=== PATIENT | female | born 1980 | race Two or more races ===

== ENCOUNTER 2021-08-02 16:17 | Outpatient (REF) | payer MEDICAID, SELFPAY ==
[2021-08-02 16:36] LABS: MANUAL DIFF FLAG NO
[2021-08-02 16:59] LABS: Basophils Percent Auto 0.8 % (0-2); Eosinophils Absolute Auto 0.1 X10*3/uL (0.0-0.4); Eosinophils Percent Auto 1.5 % (0-4); Hematocrit 36.5 % (37-47); Hemoglobin 11.6 g/dl (12.0-16.0); Imm Gran Abs Auto 0.01 X10*3/uL (0.00-0.03); Imm Gran Pct Auto 0.2 % (0.0-0.4); Lymphocytes Absolute Auto 2.5 X10*3/uL (1.2-4.9); Mean Corpuscular HGB Conc 31.8 g/dl (31.0-35.0); Mean Corpuscular Hemoglobin 29.5 pg (27.0-33.0); Mean Corpuscular Volume 92.9 fL (80-98); Mean Platelet Volume 10.5 fL (9.4-12.3); Monocytes Absolute Auto 0.4 X10*3/uL (0.1-1.2); Monocytes Percent Auto 8.5 % (2-11); Neutrophils Absolute Auto 2.1 X10*3/uL (2.0-8.3); Platelet Count 256 X10*3/uL (160-400); Red Blood Count 3.93 X10*6/uL (4.20-5.50); White Blood Count 5.2 X10*3/uL (4.8-10.8)
[2021-08-02 17:13] LABS: Alanine Aminotransferase 11 U/L (0-31); Albumin Level 4.3 g/dL (3.5-5.0); Alkaline Phosphatase 47 U/L (39-117); Anion Gap 11 (12-20); Aspartate Amino Transferase 14 U/L (5-31); Bilirubin Total 0.3 mg/dL (0.0-1.0); Blood Urea Nitrogen 17 mg/dL (9-16); Calcium 9.1 mg/dL (8.4-10.2); Carbon Dioxide 25 mmol/L (22-29); Chloride 107 mmol/L (96-108); Estimated Glomerular Filt Rate > 60; Glucose Random 97 mg/dL (60-115); Iron 86 mcg/dL (30-160); Percent Iron Saturation 29 % (15-50); Potassium 3.5 mmol/L (3.3-5.1); Sodium 139 mmol/L (135-145); Total Iron Binding Capacity 300 mcg/dL (228-428); Unsaturated Iron Binding 214 ug/dL
[2021-08-02 17:34] LABS: Vitamin D 25-OH Total 25.8 ng/mL (>30)
== END 2021-08-02 16:18 | disposition home or self-care (01) ==
LOC: HO.LAB 16:17
PROVIDERS: PCP Internal Medicine; Visit Provider Internal Medicine
DX: I10 Essential (primary) hypertension (principal); E78.00 Pure hypercholesterolemia, unspecified; D64.9 Anemia, unspecified; E55.9 Vitamin D deficiency, unspecified
CPT/HCPCS: 36415; 80053; 82306; 83540; 85025

== ENCOUNTER 2021-10-05 16:01 | Outpatient (REF) | payer MEDICAID, SELFPAY ==
--- NOTE | ~2021-10-05 | XR_ITS ---
EXAMINATION: XR KNEE, RIGHT CLINICAL INFORMATION: Pain COMPARISON: None TECHNIQUE: Four views of the right knee. FINDINGS: The patella appears well seated on the sunrise image. No significant effusion is seen. There is no bony erosion or osteopenia. No significant degeneration. XR/XR knee RT 4V IMPRESSION: No bony finding.
[2021-10-05 16:20] LABS: MANUAL DIFF FLAG NO
[2021-10-05 17:02] LABS: Basophils Percent Auto 0.5 % (0-2); Eosinophils Absolute Auto 0.1 X10*3/uL (0.0-0.4); Eosinophils Percent Auto 2.5 % (0-4); Hematocrit 36.6 % (37.0-47.0); Hemoglobin 11.9 g/dl (12.0-16.0); Imm Gran Abs Auto 0.01 X10*3/uL (0.00-0.03); Imm Gran Pct Auto 0.2 % (0.0-0.4); Lymphocytes Absolute Auto 2.5 X10*3/uL (1.2-4.9); Lymphocytes Percent Auto 44.4 % (20-40); Mean Corpuscular HGB Conc 32.5 g/dl (31.0-35.0); Mean Corpuscular Hemoglobin 30.5 pg (27.0-33.0); Mean Corpuscular Volume 93.8 fL (80.0-98.0); Mean Platelet Volume 10.8 fL (9.4-12.3); Monocytes Absolute Auto 0.5 X10*3/uL (0.1-1.2); Monocytes Percent Auto 9.3 % (2-11); Neutrophils Absolute Auto 2.4 x10*3/uL (2.0-8.3); Neutrophils Percent Auto 43.1 % (45-73); Platelet Count 237 X10*3/uL (160-400); Red Cell Distribution Width 12.4 % (11.0-16.0); White Blood Count 5.6 X10*3/uL (4.8-10.8)
[2021-10-05 17:27] LABS: Iron 75 mcg/dL (30-160); Percent Iron Saturation 24 % (15-50); Total Iron Binding Capacity 310 mcg/dL (228-428); Unsaturated Iron Binding 235 ug/dL
[2021-10-05 17:49] LABS: Vitamin D 25-OH Total 46.9 ng/mL (>30)
== END 2021-10-05 16:02 | disposition home or self-care (01) ==
LOC: HO.XRAY 16:01
PROVIDERS: PCP Internal Medicine; Visit Provider Internal Medicine
DX: D64.9 Anemia, unspecified (principal); E55.9 Vitamin D deficiency, unspecified; M25.561 Pain in right knee
CPT/HCPCS: 36415; 73564; 82306; 83540; 85025

== ENCOUNTER 2021-10-15 11:05 | Outpatient (REF) | payer MEDICAID, SELFPAY ==
[2021-10-15 12:09] LABS: COVID-19 Test Positive (Negative); IDNOW Serial# 16C4AD1C
== END 2021-10-15 11:06 | disposition home or self-care (01) ==
LOC: HO.LAB 11:05
PROVIDERS: Visit Provider Internal Medicine
DX: Z20.822 Contact with and (suspected) exposure to COVID-19 (principal)
CPT/HCPCS: 36415; 87635; C9803

== ENCOUNTER 2021-10-27 15:02 | Outpatient (REF) | payer MEDICAID, SELFPAY ==
[2021-10-27 16:34] LABS: Binax Internal Control QC Valid; Binax Now Covid-19 Ag Negative (Negative)
[2021-10-27 16:35] LABS: Binax Lot number: 9864
== END 2021-10-27 15:03 | disposition home or self-care (01) ==
LOC: HO.LAB 15:02
PROVIDERS: Visit Provider Internal Medicine
DX: Z20.822 Contact with and (suspected) exposure to COVID-19 (principal)
CPT/HCPCS: 36415; C9803

== ENCOUNTER 2021-11-14 15:47 | Outpatient (REF) | payer MEDICAID, SELFPAY ==
--- NOTE | 2021-11-14 16:16 | MHC.AU.ANR ---
Adult Audiological Evaluation Date of Visit: 11/14/21 Reason for Appointment: Audiological evaluation due to concern for decreased hearing. Ms. Iglesias notes that she's had fullness in her right ear and feels it is blocked. She notes frequent popping sounds in her ears and itching in her right ear. She notes that she had her hearing tested last year in [place], [place] and was told she has mild hearing loss in one ear. She feels that overall she hears well and doesn't experience communication difficulty. Does patient feel they have a hearing loss?: Unsure Has hearing been tested previously?: Yes Previous Hearing Test Results: [place], [place] last year, records not available for review Hearing Handicap Inventory: HHIE SCORE: 0 Based on HHIE score, patient has: No perceived hearing handicap Ear History: Family History of Hearing Loss?: Yes Blocked/Full Sensation in Ear(s): Both Ears Medical History: Medical History: High Blood Pressure Medical History (Other): Appendectomy 2009, laparoscopic hysterectomy 2019 Allergies: No known allergies Medication List: Lisinopril 5 mg, Simvastatin 20 mg, Folic Acid 1 mg, Ferrous sulfate 325 mg, [place]-3 acid Otoscopy: Right Ear: Unremarkable Left Ear: Unremarkable Tympanometry: Tympanometry performed due to: Conductive component found in audiometric results Right Ear: Normal Middle Ear System (Type A) Left Ear: Normal Middle Ear System (Type A) Hearing Evaluation: Transducer(s) Used: Insert Earphones, Bone Conduction Method: Conventional Audiometry Stimuli Used: Pure Tones Right Ear: Description of Hearing: Normal hearing from 250-2000 Hz, sloping to a mild to moderate conductive hearing loss from 8559-6225 Hz. Negative pure tone Kelley test. Left Ear: Description of Hearing: Normal hearing from 250-8000 Hz. Speech Recognition Threshold (SRT): Method Used: Monitored Live Voice Stimuli Used: Spondee Words Right Ear: 30 dBHL Left Ear: 5 dBHL Word Discrimination: Method: Recorded Lists Word Lists Used: NU-6 Right Ear: 88% at 50 dBHL Left Ear: 100% at 55 dBHL Recommendations: Audiological re-evaluation in one year. Referral to Ear, Nose, and Throat is recommended given asymmetric, conductive hearing loss in the right ear. 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
== END 2021-11-14 15:48 | disposition home or self-care (01) ==
LOC: HO.SH 15:47
PROVIDERS: Visit Provider Internal Medicine
DX: H90.11 Conductive hearing loss, unilateral, right ear, with unrestricted hearing on the contralateral side (principal)
CPT/HCPCS: 92557; 92567

== ENCOUNTER 2022-02-06 16:21 | Outpatient (REF) | payer MEDICAID, SELFPAY ==
[2022-02-06 16:37] LABS: MANUAL DIFF FLAG NO
[2022-02-06 16:59] LABS: Basophils Absolute Auto 0.1 X10*3/uL (0.0-0.2); Basophils Percent Auto 1.1 % (0-2); Eosinophils Absolute Auto 0.1 X10*3/uL (0.0-0.4); Eosinophils Percent Auto 1.5 % (0-4); Hematocrit 35.4 % (37.0-47.0); Hemoglobin 11.5 g/dl (12.0-16.0); Lymphocytes Absolute Auto 2.4 X10*3/uL (1.2-4.9); Lymphocytes Percent Auto 44.2 % (20-40); Mean Corpuscular HGB Conc 32.5 g/dl (31.0-35.0); Mean Corpuscular Hemoglobin 30.1 pg (27.0-33.0); Mean Corpuscular Volume 92.7 fL (80.0-98.0); Mean Platelet Volume 10.8 fL (9.4-12.3); Monocytes Absolute Auto 0.5 X10*3/uL (0.1-1.2); Monocytes Percent Auto 9.8 % (2-11); Neutrophils Absolute Auto 2.4 x10*3/uL (2.0-8.3); Neutrophils Percent Auto 43.4 % (45-73); Platelet Count 216 X10*3/uL (160-400); Red Blood Count 3.82 X10*6/uL (4.20-5.50); Red Cell Distribution Width 12.5 % (11.0-16.0); White Blood Count 5.5 X10*3/uL (4.8-10.8)
[2022-02-06 17:34] LABS: Alanine Aminotransferase 12 U/L (0-31); Albumin Level 4.1 g/dL (3.5-5.0); Alkaline Phosphatase 42 U/L (39-117); Anion Gap 11 (12-20); Aspartate Amino Transferase 15 U/L (5-31); Bilirubin Total 0.3 mg/dL (0.0-1.0); Blood Urea Nitrogen 17 mg/dL (9-16); C Reactive Protein 0.25 mg/dL (< or = 0.50); Calcium 9.3 mg/dL (8.4-10.2); Carbon Dioxide 24 mmol/L (22-29); Chloride 106 mmol/L (96-108); Estimated Glomerular Filt Rate > 60; Glucose Random 89 mg/dL (60-115); Potassium 3.7 mmol/L (3.3-5.1); Sodium 137 mmol/L (135-145); Total Protein 6.9 g/dL (6.5-8.0)
[2022-02-06 17:50] LABS: Appearance Urine CLEAR; Color Urine YELLOW; Glucose Urine UA NEG (NEG); Leukocyte Esterase Urine NEG (NEG); Nitrite Urine NEG (NEG); PH 6.5 (5.0-8.0); Specific Gravity - Urine 1.015 (1.005-1.025); Urine Blood NEG (NEG); Urine Ketones NEG (NEG); Urine Protein NEG (NEG-TRACE)
== END 2022-02-06 16:22 | disposition home or self-care (01) ==
LOC: HO.LAB 16:21
PROVIDERS: PCP Internal Medicine; Visit Provider Internal Medicine
DX: R10.2 Pelvic and perineal pain (principal); R30.0 Dysuria
CPT/HCPCS: 36415; 80053; 81003; 85025; 86140; 87086

== ENCOUNTER 2022-06-04 14:36 | Outpatient (REF) | payer MEDICAID, SELFPAY ==
[2022-06-04 14:51] LABS: MANUAL DIFF FLAG NO
[2022-06-04 15:12] LABS: Basophils Percent Auto 0.7 % (0-2); Eosinophils Absolute Auto 0.1 X10*3/uL (0.0-0.4); Eosinophils Percent Auto 1.7 % (0-4); Hematocrit 37.7 % (37.0-47.0); Hemoglobin 12.2 g/dl (12.0-16.0); Imm Gran Abs Auto 0.01 X10*3/uL (0.00-0.03); Imm Gran Pct Auto 0.2 % (0.0-0.4); Lymphocytes Percent Auto 35.3 % (20-40); Mean Corpuscular HGB Conc 32.4 g/dl (31.0-35.0); Mean Corpuscular Hemoglobin 30.2 pg (27.0-33.0); Mean Corpuscular Volume 93.3 fL (80.0-98.0); Mean Platelet Volume 10.6 fL (9.4-12.3); Monocytes Absolute Auto 0.6 X10*3/uL (0.1-1.2); Monocytes Percent Auto 9.9 % (2-11); Neutrophils Percent Auto 52.2 % (45-73); Platelet Count 230 X10*3/uL (160-400); Red Blood Count 4.04 X10*6/uL (4.20-5.50); Red Cell Distribution Width 12.4 % (11.0-16.0); White Blood Count 5.8 X10*3/uL (4.8-10.8)
[2022-06-04 15:40] LABS: Alanine Aminotransferase 15 U/L (0-31); Albumin Level 4.3 g/dL (3.5-5.0); Alkaline Phosphatase 49 U/L (39-117); Anion Gap 14 (12-20); Aspartate Amino Transferase 14 U/L (5-31); Bilirubin Total 0.3 mg/dL (0.0-1.0); Blood Urea Nitrogen 19 mg/dL (9-16); Calcium 9.1 mg/dL (8.4-10.2); Carbon Dioxide 26 mmol/L (22-29); Chloride 106 mmol/L (96-108); Estimated Glomerular Filt Rate > 60; Glucose Random 77 mg/dL (60-115); Iron 85 mcg/dL (30-160); Percent Iron Saturation 30 % (15-50); Sodium 142 mmol/L (135-145); Total Iron Binding Capacity 288 mcg/dL (228-428); Unsaturated Iron Binding 203 ug/dL
== END 2022-06-04 14:37 | disposition home or self-care (01) ==
LOC: HO.LAB 14:36
PROVIDERS: PCP Internal Medicine; Visit Provider Internal Medicine
DX: R10.9 Unspecified abdominal pain (principal); R19.7 Diarrhea, unspecified; D64.9 Anemia, unspecified
CPT/HCPCS: 36415; 80053; 83540; 85025

== ENCOUNTER 2022-10-26 08:16 | Outpatient (REF) | payer MEDICAID, SELFPAY ==
[2022-10-26 08:26] LABS: MANUAL DIFF FLAG NO
[2022-10-26 09:00] LABS: Basophils Percent Auto 0.9 % (0-2); Eosinophils Absolute Auto 0.1 X10*3/uL (0.0-0.4); Eosinophils Percent Auto 2.3 % (0-4); Hematocrit 36.8 % (37.0-47.0); Hemoglobin 11.9 g/dl (12.0-16.0); Imm Gran Abs Auto 0.01 X10*3/uL (0.00-0.03); Imm Gran Pct Auto 0.2 % (0.0-0.4); Lymphocytes Percent Auto 45.6 % (20-40); Mean Corpuscular HGB Conc 32.3 g/dl (31.0-35.0); Mean Corpuscular Hemoglobin 29.8 pg (27.0-33.0); Mean Corpuscular Volume 92.2 fL (80.0-98.0); Mean Platelet Volume 10.9 fL (9.4-12.3); Monocytes Absolute Auto 0.4 X10*3/uL (0.1-1.2); Monocytes Percent Auto 9.2 % (2-11); Neutrophils Absolute Auto 1.8 x10*3/uL (2.0-8.3); Neutrophils Percent Auto 41.8 % (45-73); Platelet Count 216 X10*3/uL (160-400); Red Blood Count 3.99 X10*6/uL (4.20-5.50); Red Cell Distribution Width 12.7 % (11.0-16.0); White Blood Count 4.4 X10*3/uL (4.8-10.8)
[2022-10-26 09:29] LABS: Cholesterol 167 mg/dL; HDL Cholesterol 54 mg/dL; LDL Cholesterol Calculated 100 mg/dl; Triglycerides 66 mg/dL
[2022-10-26 09:44] LABS: Free T4 (Free Thyroxine) 0.89 ng/dL (0.71-1.85)
== END 2022-10-26 08:17 | disposition home or self-care (01) ==
LOC: HO.LAB 08:16
PROVIDERS: PCP Internal Medicine; Visit Provider Internal Medicine
DX: E78.00 Pure hypercholesterolemia, unspecified (principal); R63.4 Abnormal weight loss
CPT/HCPCS: 36415; 80061; 84439; 85025

== ENCOUNTER 2023-01-09 14:01 | Outpatient (REF) | payer MEDICAID, SELFPAY ==
[2023-01-09 15:51] LABS: Anion Gap 12 (12-20); Blood Urea Nitrogen 11 mg/dL (9-16); C Reactive Protein 0.16 mg/dL (< or = 0.50); Carbon Dioxide 26 mmol/L (22-29); Chloride 107 mmol/L (96-108); Estimated Glomerular Filt Rate > 60; Glucose Random 85 mg/dL (60-115); Potassium 3.7 mmol/L (3.3-5.1); Sodium 141 mmol/L (135-145)
[2023-01-09 16:16] LABS: Free T4 (Free Thyroxine) 0.92 ng/dL (0.71-1.85); Thyroid Stimulating Hormone 1.08 uIU/mL (0.32-4.0); Vitamin B12 354 pg/mL (200-900)
== END 2023-01-09 14:02 | disposition home or self-care (01) ==
LOC: HO.LAB 14:01
PROVIDERS: PCP Internal Medicine; Visit Provider Internal Medicine
DX: R53.83 Other fatigue (principal); E78.00 Pure hypercholesterolemia, unspecified
CPT/HCPCS: 36415; 80048; 82607; 84439; 84443; 86140

== ENCOUNTER 2023-01-13 13:44 | Emergency (ER) | payer MEDICAID, SELFPAY ==
--- NOTE | ~2023-01-13 | XR_ITS ---
EXAMINATION: XR CHEST CLINICAL INFORMATION: Chest pain COMPARISON: None available. TECHNIQUE: 2 views of the chest were obtained. FINDINGS: The lungs are clear. There is no pneumothorax or pleural reaction. No airspace consolidation or effusion. The heart is normal in size. The hilar and mediastinal contours are normal. There is mild curvature thoracic spine. XR/XR chest 2V IMPRESSION: Unremarkable examination.
[2023-01-13 13:48] VITALS: BP 141/94; PULSE 90; RESP 18; TEMP 36.1; O2SAT 99; BMI 21.2
--- NOTE | 2023-01-13 13:50 | ECG_ITS ---
Test Reason : cp Blood Pressure : / mmHG Vent. Rate : 083 BPM Atrial Rate : 083 BPM P-R Int : 162 ms QRS Dur : 072 ms QT Int : 360 ms P-R-T Axes : 042 012 003 degrees QTc Int : 423 ms Normal sinus rhythm with sinus arrhythmia Nonspecific ST abnormality Abnormal ECG No previous ECGs available Referred By: Generic ED Physician Electronically Signed By:LEANDRA VALLEJO MD
[2023-01-13 14:05] LABS: Basophils Absolute Auto 0.1 X10*3/uL (0.0-0.2); Basophils Percent Auto 0.9 % (0-2); Eosinophils Absolute Auto 0.1 X10*3/uL (0.0-0.4); Eosinophils Percent Auto 1.1 % (0-4); Hematocrit 38.1 % (37.0-47.0); Hemoglobin 12.4 g/dl (12.0-16.0); Imm Gran Abs Auto 0.01 X10*3/uL (0.00-0.03); Imm Gran Pct Auto 0.2 % (0.0-0.4); Lymphocytes Absolute Auto 2.2 X10*3/uL (1.2-4.9); Lymphocytes Percent Auto 38.7 % (20-40); MANUAL DIFF FLAG NO; Mean Corpuscular HGB Conc 32.5 g/dl (31.0-35.0); Mean Corpuscular Hemoglobin 30.2 pg (27.0-33.0); Mean Corpuscular Volume 92.7 fL (80.0-98.0); Mean Platelet Volume 10.3 fL (9.4-12.3); Monocytes Absolute Auto 0.4 X10*3/uL (0.1-1.2); Monocytes Percent Auto 6.4 % (2-11); Neutrophils Percent Auto 52.7 % (45-73); Platelet Count 240 X10*3/uL (160-400); Red Blood Count 4.11 X10*6/uL (4.20-5.50); Red Cell Distribution Width 12.4 % (11.0-16.0); White Blood Count 5.6 X10*3/uL (4.8-10.8)
[2023-01-13 14:24] LABS: Anion Gap 12 (12-20); Blood Urea Nitrogen 16 mg/dL (9-16); Calcium 9.4 mg/dL (8.4-10.2); Carbon Dioxide 26 mmol/L (22-29); Chloride 106 mmol/L (96-108); Creatinine Clr Calc Pharmacy 98.6; Estimated Glomerular Filt Rate > 60; Glucose Random 117 mg/dL (60-115); Potassium 3.8 mmol/L (3.3-5.1); Sodium 140 mmol/L (135-145)
--- NOTE | 2023-01-13 14:24 | ED_ITS ---
HPI - Chest Pain General Chief Complaint: Chest Pain <TIANNA Carlton - Last Filed: 01/13/23 14:27> Stated Complaint: chest pain, trouble breathing <TIANNA Carlton - Last Filed: 01/13/23 14:27> Time Seen by Provider: 01/13/23 17:14 <TIANNA Carlton - Last Filed: 01/13/23 14:27> Source: patient <Rohith Cool MD - Last Filed: 01/13/23 17:41> Mode of arrival: ambulatory <Rohith Cool MD - Last Filed: 01/13/23 17:41> Limitations: no limitations <Rohith Cool MD - Last Filed: 01/13/23 17:41> History of Present Illness HPI narrative: Patient is stress/anxiety with history of borderline hypertension complaining of right-sided and made chest pain for last 1 week comes and goes lasts for few minutes sharp and correct no cough no fever no chills patient under increased stress lately <Rohith Cool MD - Last Filed: 01/13/23 17:41> Related Data Allergies/Adverse Reactions: Allergies Allergy/AdvReac Type Severity Reaction Status Date / Time No Known Allergies Allergy Verified 01/13/23 13:48 <TIANNA Carlton - Last Filed: 01/13/23 14:27> Review of Systems Review of Systems: Yes all other systems are reviewed and are negative <Rohith Cool MD - Last Filed: 01/13/23 17:41> FORMERLY [facility], [facility]–1983 Social History Social History: Social History Advance Directives: No Advance Directives Information Provided: Yes <TIANNA Carlton - Last Filed: 01/13/23 14:27> Physical Exam Vital Signs: Vital Signs: Last Vital Signs Temp 97 F 01/13/23 13:48 Pulse 79 01/13/23 15:01 Resp 14 01/13/23 15:01 BP 124/86 01/13/23 15:01 Pulse Ox 100 01/13/23 15:01 O2 Del Method 01/13/23 15:01 BMI result Body Mass Index 21.2 <TIANNA Carlton - Last Filed: 01/13/23 14:27> Vital Signs: Last Vital Signs Temp 97 F 01/13/23 13:48 Pulse 79 01/13/23 15:01 Resp 14 01/13/23 15:01 BP 124/86 01/13/23 15:01 Pulse Ox 100 01/13/23 15:01 O2 Del Method 01/13/23 15:01 BMI result Body Mass Index 21.2 <Rohith Cool MD - Last Filed: 01/13/23 17:41> Appearance: Alert. Oriented X3. No acute distress. Anxious Eyes: PERRLA, No Nystagmus ENT: Pharynx normal. Oral Mucosa moist Neck: Normal inspection. Neck supple. CVS: Normal heart rate and rhythm. Pulses normal. Respiratory: No respiratory distress. Equal air entry bilateral, no wheezing/rales/rhonchi Abdomen: Soft and nontender. Bowel sounds are present, no mass palpable, no CVA tenderness Skin: Skin warm and dry. Normal skin color. Normal skin turgor. Extremities: No lower extremity edema. No calf tenderness Neuro: Oriented X 3. No motor deficit. No sensory deficit.No cerebellar signs , cranial nerves II-XII intact <Rohith Cool MD - Last Filed: 01/13/23 17:41> Course Course Course Narrative: This is an RME: Additional HPI, ROS, PE not included below will be deferred to primary provider. 43-year-old female plan is ends with pleuritic chest pain, shortness of breath times a week and half, not going away. Patient tells me that there was cardiac history in the family that she is unsure of so she is worried. Pain is worse with deep breathing and exercising. Located in the substernal region nonradiating. She denies long travel, smoking, c ontrol. No lower extremity swelling. Physical exam benign Plan cardiac work up, D-dimer, x-ray. <TIANNA Carlton - Last Filed: 01/13/23 14:27> Medical Decision Making Medical Decision Making MDM Narrative: Patient has atypical chest pain with increased stress high sensitive troponin negative discharge patient home advised to follow with PCP workup negative D-dimer negative high sensitive troponin <Rohith Cool MD - Last Filed: 01/13/23 17:41> Differential Diagnosis ACS/PE/CAD <Rohith Cool MD - Last Filed: 01/13/23 17:41> Lab Data [facility] Lab Attestation statement: I reviewed the patient's lab results. <Rohith Cool MD - Last Filed: 01/13/23 17:41> Result Diagrams: 01/13/23 14:00 01/13/23 14:00 <TIANNA Carlton - Last Filed: 01/13/23 14:27> Labs: Lab Results 01/13/23 01/13/23 01/13/23 Range/Units 14:00 14:00 14:00 WBC 5.6 (4.8-10.8) X10*3/uL RBC 4.11 L (4.20-5.50) X10*6/uL Hgb 12.4 (12.0-16.0) g/dl Hct 38.1 (37.0-47.0) % MCV 92.7 (80.0-98.0) fL MCH 30.2 (27.0-33.0) pg MCHC 32.5 (31.0-35.0) g/dl RDW 12.4 (11.0-16.0) % Plt Count 240 (160-400) X10*3/uL MPV 10.3 (9.4-12.3) fL Immature Gran % (Auto) 0.2 (0.0-0.4) % Neut % (Auto) 52.7 (45-73) % Lymph % (Auto) 38.7 (20-40) % [place] % (Auto) 6.4 (2-11) % Eos % (Auto) 1.1 (0-4) % Baso % (Auto) 0.9 (0-2) % Lymph # (Auto) 2.2 (1.2-4.9) X10*3/uL [place] # (Auto) 0.4 (0.1-1.2) X10*3/uL Eos # (Auto) 0.1 (0.0-0.4) X10*3/uL Baso # (Auto) 0.1 (0.0-0.2) X10*3/uL Abs Immat Gran (auto) 0.01 (0.00-0.03) X10*3/uL Absolute Neuts (auto) 3.0 (2.0-8.3) x10*3/uL Absolute Nucleated RBC 0.000 (0.0-0.012) X10*3/uL Nucleated RBC % (auto) 0.0 (0.0-0.2) /100WBC D-Dimer High Sensitivty NG/ML Sodium 140 (135-145) mmol/L Potassium 3.8 (3.3-5.1) mmol/L Chloride 106 (96-108) mmol/L Carbon Dioxide 26 (22-29) mmol/L Anion Gap 12 (12-20) BUN 16 (9-16) mg/dL Creatinine 0.73 (0.5-1.4) mg/dL Estim Creat Clear Calc 98.6 Estimated GFR > 60 Random Glucose 117 H (60-115) mg/dL Calcium 9.4 (8.4-10.2) mg/dL Troponin I High Sens < 3.5 (<3.5-17.0) ng/L 01/13/23 Range/Units 15:31 WBC (4.8-10.8) X10*3/uL RBC (4.20-5.50) X10*6/uL Hgb (12.0-16.0) g/dl Hct (37.0-47.0) % MCV (80.0-98.0) fL MCH (27.0-33.0) pg MCHC (31.0-35.0) g/dl RDW (11.0-16.0) % Plt Count (160-400) X10*3/uL MPV (9.4-12.3) fL Immature Gran % (Auto) (0.0-0.4) % Neut % (Auto) (45-73) % Lymph % (Auto) (20-40) % [place] % (Auto) (2-11) % Eos % (Auto) (0-4) % Baso % (Auto) (0-2) % Lymph # (Auto) (1.2-4.9) X10*3/uL [place] # (Auto) (0.1-1.2) X10*3/uL Eos # (Auto) (0.0-0.4) X10*3/uL Baso # (Auto) (0.0-0.2) X10*3/uL Abs Immat Gran (auto) (0.00-0.03) X10*3/uL Absolute Neuts (auto) (2.0-8.3) x10*3/uL Absolute Nucleated RBC (0.0-0.012) X10*3/uL Nucleated RBC % (auto) (0.0-0.2) /100WBC D-Dimer High Sensitivty < 150 NG/ML Sodium (135-145) mmol/L Potassium (3.3-5.1) mmol/L Chloride (96-108) mmol/L Carbon Dioxide (22-29) mmol/L Anion Gap (12-20) BUN (9-16) mg/dL Creatinine (0.5-1.4) mg/dL Estim Creat Clear Calc Estimated GFR Random Glucose (60-115) mg/dL Calcium (8.4-10.2) mg/dL Troponin I High Sens (<3.5-17.0) ng/L <TIANNA Carlton - Last Filed: 01/13/23 14:27> Lab Results 01/13/23 01/13/23 01/13/23 Range/Units 14:00 14:00 14:00 WBC 5.6 (4.8-10.8) X10*3/uL RBC 4.11 L (4.20-5.50) X10*6/uL Hgb 12.4 (12.0-16.0) g/dl Hct 38.1 (37.0-47.0) % MCV 92.7 (80.0-98.0) fL MCH 30.2 (27.0-33.0) pg MCHC 32.5 (31.0-35.0) g/dl RDW 12.4 (11.0-16.0) % Plt Count 240 (160-400) X10*3/uL MPV 10.3 (9.4-12.3) fL Immature Gran % (Auto) 0.2 (0.0-0.4) % Neut % (Auto) 52.7 (45-73) % Lymph % (Auto) 38.7 (20-40) % [place] % (Auto) 6.4 (2-11) % Eos % (Auto) 1.1 (0-4) % Baso % (Auto) 0.9 (0-2) % Lymph # (Auto) 2.2 (1.2-4.9) X10*3/uL [place] # (Auto) 0.4 (0.1-1.2) X10*3/uL Eos # (Auto) 0.1 (0.0-0.4) X10*3/uL Baso # (Auto) 0.1 (0.0-0.2) X10*3/uL Abs Immat Gran (auto) 0.01 (0.00-0.03) X10*3/uL Absolute Neuts (auto) 3.0 (2.0-8.3) x10*3/uL Absolute Nucleated RBC 0.000 (0.0-0.012) X10*3/uL Nucleated RBC % (auto) 0.0 (0.0-0.2) /100WBC D-Dimer High Sensitivty NG/ML Sodium 140 (135-145) mmol/L Potassium 3.8 (3.3-5.1) mmol/L Chloride 106 (96-108) mmol/L Carbon Dioxide 26 (22-29) mmol/L Anion Gap 12 (12-20) BUN 16 (9-16) mg/dL Creatinine 0.73 (0.5-1.4) mg/dL Estim Creat Clear Calc 98.6 Estimated GFR > 60 Random Glucose 117 H (60-115) mg/dL Calcium 9.4 (8.4-10.2) mg/dL Troponin I High Sens < 3.5 (<3.5-17.0) ng/L 01/13/23 Range/Units 15:31 WBC (4.8-10.8) X10*3/uL RBC (4.20-5.50) X10*6/uL Hgb (12.0-16.0) g/dl Hct (37.0-47.0) % MCV (80.0-98.0) fL MCH (27.0-33.0) pg MCHC (31.0-35.0) g/dl RDW (11.0-16.0) % Plt Count (160-400) X10*3/uL MPV (9.4-12.3) fL Immature Gran % (Auto) (0.0-0.4) % Neut % (Auto) (45-73) % Lymph % (Auto) (20-40) % [place] % (Auto) (2-11) % Eos % (Auto) (0-4) % Baso % (Auto) (0-2) % Lymph # (Auto) (1.2-4.9) X10*3/uL [place] # (Auto) (0.1-1.2) X10*3/uL Eos # (Auto) (0.0-0.4) X10*3/uL Baso # (Auto) (0.0-0.2) X10*3/uL Abs Immat Gran (auto) (0.00-0.03) X10*3/uL Absolute Neuts (auto) (2.0-8.3) x10*3/uL Absolute Nucleated RBC (0.0-0.012) X10*3/uL Nucleated RBC % (auto) (0.0-0.2) /100WBC D-Dimer High Sensitivty < 150 NG/ML Sodium (135-145) mmol/L Potassium (3.3-5.1) mmol/L Chloride (96-108) mmol/L Carbon Dioxide (22-29) mmol/L Anion Gap (12-20) BUN (9-16) mg/dL Creatinine (0.5-1.4) mg/dL Estim Creat Clear Calc Estimated GFR Random Glucose (60-115) mg/dL Calcium (8.4-10.2) mg/dL Troponin I High Sens (<3.5-17.0) ng/L <Rohith Cool MD - Last Filed: 01/13/23 17:41> Independent Interpretation I performed an independent interpretation of an: EKG <Rohith Cool MD - Last Filed: 01/13/23 17:41> Interpretation: Normal sinus rhythm heart rate 83 beats per min nonspecific STT wave changes no acute ischemic changes normal interval normal axis no acute skin <Rohith Cool MD - Last Filed: 01/13/23 17:41> Discharge Plan Discharge Clinical Impression: Chest pain, non-cardiac <TIANNA Carlton - Last Filed: 01/13/23 14:27> Patient Disposition: Home, Self-Care <TIANNA Carlton - Last Filed: 01/13/23 14:27> Instructions: Noncardiac Chest Pain (ED) <TIANNA Carlton - Last Filed: 01/13/23 14:27> Additional Instructions: Follow-up with PCP chest pain is not from the heart likely stress/anxiety <TIANNA Carlton - Last Filed: 01/13/23 14:27>
[2023-01-13 14:36] LABS: Troponin-I High Sensitivity < 3.5 ng/L (<3.5-17.0)
[2023-01-13 15:01] VITALS: BP 124/86; PULSE 79; RESP 14; O2SAT 100
[2023-01-13 16:41] LABS: D Dimer High Sensitivity < 150 NG/ML
--- NOTE | 2023-01-13 16:49 | PC.NURSE ---
pt is resting comfortably on stretcher at this time. Reports burning like chest pain and mild shortness of breath x1 week. Pt reports no sick contacts, no other symptoms. VSS at this time, oxygen good as well. Awaiting MD at this time
== END 2023-01-13 17:47 | disposition home or self-care (01) ==
PROVIDERS: Physician Assistant; Emergency Provider Internal Medicine; PCP Internal Medicine
DX: R07.9 Chest pain, unspecified (principal); R06.02 Shortness of breath
CPT/HCPCS: 36415; 71046; 80048; 84484; 85025; 85379; 93005; 99283; 99284

== ENCOUNTER 2023-06-17 10:54 | Outpatient (AMB) | payer OTHER, SELFPAY ==
--- NOTE | 2023-06-17 10:58 | MHC.OFFVIS ---
Intake Vital Signs 06/17/23 10:59 Height 5 ft 7 in Weight 134 lb 7.712 oz BMI 21.1 BP 121/73 Blood Pressure Location Lt brachial Position Sitting Pulse 110 H Intake Visit Reasons: bad breathe - acid Intake Note: Donna presents in the office as a new patient. CC: She states that she is here because she has noticed that she has bad breathe and she states that it is coming from her stomach. Allergies No Known Allergies Allergy (Verified 06/17/23 10:59) HPI HPI Comments History of Present Illness Details 43 y.o F with no signficant PMH who is here for further evaluation of halitosis. Pt reports having the sensation of bad breath since her teens. Had an EGD at 20 y.o in [place] and was noted to have H Pylori which was successfully eradicated per her report. She has also been going to the dentist twice a year and does not have any dental or gingival disease. Reports having hx of tonsillar stones on the L side as a kid. Currently, no abd symptoms including abd pain, bloating or diarrhea or constipation. PFSH Surgical History History of esophagogastroduodenoscopy (EGD) Hx of colonoscopy Social History Alcohol intake: current Alcohol intake frequency: does not drink Patient Tobacco Use Status: Never used Tobacco Review of Systems Const All systems reviewed & are unremarkable except as noted in HPI and below Physical Exam Vital Signs: Last Vital Signs Pulse 110 H 06/17/23 10:59 BP 121/73 06/17/23 10:59 BMI result Body Mass Index 21.1 Gen appear: NAD HEENT: nonicteric, no cervical lymphadenopathy Chest: CTA CVS: Regular S1/S2 Abd: soft, nontender, nondistended, bowel sounds + Ext: no peripheral edema Neuro: A/Ox3, noted to move all extremities spontaneously Psych: interacting appropriately Assessment & Plan Assessment & Plan (1) Halitosis: Code(s): R19.6 - Halitosis Plan Discussed that would recommend addressing more common causes such as dry mouth, tonsillar disease etc. From GI standpoint, have some data with hypersecretion of acid as well as SIBO causing halitosis but not very common. Plan: - Trial of omeprazole 40 x 8 weeks - then taper off - Empiric Rifaximin 550 TID x 14 days. Pt to call us for Cipro if not covered by insurance - Also encouraged to see ENT tamar if hx of tonsillar issues as a kid - Follow up in 8 weeks Medications: New rifaximin 550 mg PO TID 14 days 42 tabs 0RF omeprazole Take 2 capsules x 8 weeks and then 1 capsule x 2 weeks 20 mg PO DAILY 90 caps 1RF Coding Level of Care Code New Pt Level 4 (78251) Diagnoses Halitosis R19.6
[2023-06-17 10:59] VITALS: BP 121/73; PULSE 110; BMI 21.1
== END 2023-06-17 12:08 | disposition home or self-care (01) ==
PROVIDERS: PCP Hospitalist; Visit Provider Internal Medicine
DX: R19.6 Halitosis (principal)
CPT/HCPCS: 99204

== ENCOUNTER → 2023-06-17 10:54 | Outpatient (BNVA) | payer OTHER, SELFPAY | PROVIDERS: PCP Hospitalist; Visit Provider Internal Medicine | DX: R19.6 Halitosis (principal) | CPT/HCPCS: 99202 ==

== ENCOUNTER 2023-08-12 10:55 | Outpatient (AMB) | payer OTHER, SELFPAY ==
--- NOTE | 2023-08-12 11:01 | MHC.OFFVIS ---
Intake Vital Signs 08/12/23 11:03 Height 5 ft 7 in Weight 136 lb 10.986 oz BMI 21.4 BP 123/72 Blood Pressure Location Lt brachial Position Sitting Pulse 92 Intake Visit Reasons: 8 week follow up Intake Note: Donna presents in the office as a 8 week follow up. CC: She tried to take the pills but she states that it was a lot. She did not do the treatment correctly - she started to feel sick. Offset Press Operator Required: No Allergies No Known Allergies Allergy (Verified 08/12/23 11:02) HPI HPI Comments History of Present Illness Details 43 y.o F with no signficant PMH who is here for further evaluation of halitosis. Pt reports having the sensation of bad breath since her teens. Had an EGD at 20 y.o in [place] and was noted to have H Pylori which was successfully eradicated per her report. She has also been going to the dentist twice a year and does not have any dental or gingival disease. Reports having hx of tonsillar stones on the L side as a kid. Currently, no abd symptoms including abd pain, bloating or diarrhea or constipation. 08/12/23: Remains without any GI complaints. Here for follow up for halitosis which remains largely a subjective complaint. Could not tolerate Abx for SIBO and only took the cipro for a couple of days. Stopped due to abd cramping and nausea. (Rifaximin not covered by insurance). Has not seen ENT yet for? tonsillar stones. [facility] Surgical History History of esophagogastroduodenoscopy (EGD) Hx of colonoscopy Social History Alcohol intake: current Alcohol intake frequency: does not drink Patient Tobacco Use Status: Never used Tobacco Review of Systems Const All systems reviewed & are unremarkable except as noted in HPI and below Physical Exam Vital Signs: Last Vital Signs Pulse 92 08/12/23 11:03 BP 123/72 08/12/23 11:03 BMI result Body Mass Index 21.4 Gen appear: NAD HEENT: nonicteric, no cervical lymphadenopathy Chest: CTA CVS: Regular S1/S2 Abd: soft, nontender, nondistended, bowel sounds + Ext: no peripheral edema Neuro: A/Ox3, noted to move all extremities spontaneously Psych: interacting appropriately Assessment & Plan Assessment & Plan (1) Halitosis: Code(s): R19.6 - Halitosis Plan Again reminded that some GI upset is to be expected with all Abx but that will be self limited and resolve once therapy is completed. From GI standpoint, no response to sx with empiric omeprazole 40. Offered EGD to r/o objective evidence of acid hypersecretion such as gastritis/esophagitis which she declines at this time as does not have any sx. Interested in trying empiric ABx for SIBO again. Will prescribe Bactrim. Ultimately she should also be seeing ENT and dentist for continued evaluation. - Bactrim DS BID x 10 days - Can taper off omeprazole to 20 x 2 weeks and then stop if not noticing any change in sx - Reminded to see ENT again - If not better with tx of presumed SIBO, pt to strongly consider EGD for luminal eval and if that is normal too, limited indication of further GI work up. Follow up in 4 weeks to review response as above Medications: New sulfamethoxazole-trimethoprim 800-160 mg (Bactrim DS) 1 tab PO BID 20 tabs 0RF 10 days omeprazole 20 mg PO DAILY 90 caps 0RF Discontinued rifaximin Discontinued Reason: Patient Completed Course 550 mg PO TID 14 days 42 tabs 0RF omeprazole Take 2 capsules x 8 weeks and then 1 capsule x 2 weeks Discontinued Reason: Patient Completed Course 20 mg PO DAILY 90 caps 1RF ciprofloxacin HCl Discontinued Reason: Patient Completed Course 500 mg PO BID 14 days 28 tabs 0RF Coding Level of Care Code Est Pt Level 4 (82480) Diagnoses Halitosis R19.6
[2023-08-12 11:03] VITALS: BP 123/72; PULSE 92; BMI 21.4
== END 2023-08-12 11:33 | disposition home or self-care (01) ==
PROVIDERS: PCP Hospitalist; Visit Provider Internal Medicine
DX: R19.6 Halitosis (principal)
CPT/HCPCS: 99214

== ENCOUNTER → 2023-08-12 10:55 | Outpatient (BNVA) | payer OTHER, SELFPAY | PROVIDERS: PCP Hospitalist; Visit Provider Internal Medicine | DX: R19.6 Halitosis (principal); J35.8 Other chronic diseases of tonsils and adenoids | CPT/HCPCS: 99212 ==

== ENCOUNTER → 2023-09-10 15:22 | Outpatient (BNVA) | payer OTHER, SELFPAY | PROVIDERS: PCP Hospitalist; Visit Provider Internal Medicine ==

== ENCOUNTER 2023-11-17 09:06 | Outpatient (AMB) | payer OTHER, SELFPAY ==
--- NOTE | 2023-11-17 09:11 | MHC.PC.OV ---
Vital Signs 11/17/23 09:13 11/17/23 09:33 Height 5 ft 7 in Weight 130 lb 6 oz BMI 20.4 BP 138/84 130/90 H Blood Pressure Location Rt brachial Rt brachial Position Sitting Sitting Respiration 13 Pulse 109 H 88 Pulse Source Pulse Oximeter Auscultation Temp 97.3 F Temp Source Temporal Artery Scan Pulse Oximetry (%) 98 Oxygen Delivery Method Room Air Intake Visit Reasons: new patient requesting physical Intake Note: Patient states that she had uterus removed and she took a long break from having sexual intercourse when she has intercourse now she sees a little blood and feels weird sensation. Patient states that when she was in [place] her PCP stated that she may have osteoperosis and she would like that checked. Patient would also like referral to OBGYN. Patient also has hemmroid that has been 3 weeks and has not gone away with cream shes been using. Patient would also like a referral to ENT due to hearing loss in right ear. Curriculum And Instruction Director Required: No Accompanied by: Self / Same As Patient Allergies No Known Allergies Allergy (Verified 11/17/23 09:25) Medication List - Last Reconciled 11/17/23 by Annalee Thomas CNP ferrous sulfate 325 mg PO DAILY folic acid 1 mg PO DAILY omega-3 acid ethyl esters 1 cap PO DAILY simvastatin 20 mg PO DAILY Tobacco use date assessed: 11/17/23 Dental Screening Dental Screen Date: 11/17/23 Did you have a dental visit in the last 12 months?: Yes Did you have a dental problem in the last 6 months where you did not have access to dental care?: No Was dental information given to patient?: Patient has dentist HPI HPI Comments History of Present Illness Details New patient [facility] Last office visit/CPE: About 1 year ago Acute issue(s): HLD -She is on Simvastatin 20mg daily Anemia -She is on Ferrous sulfate 325 mg daily She notes that she was on Lisinopril 5mg daily but her PCP discontinued the medication about a year ago due to controlled blood pressure PMHx: HTN, HLD, hemorrhoids SurgHx: Hysterectomy, appendectomy FHx: Mom: HTN, DM, heart disease. Dad: HTN, DM, heart disease SocHx: Nonsmoker. non drinker. No recreational drugs Last pap smear test was over 2 years ago: normal She notes that her former PCP in [place] told her she had osteoporosis from a blood work that was done 5 years ago. She denies having a bone density scan She reports pain with sexual intercourse with some bleeding about 3 weeks ago. Those symptoms have resolved. She reports intermittent suprabupic discomfort for about a month and half. No current symptoms. No urinary frequency. No burning, pain, or discharge with urination. No vaginal pain or itching She notes that she has been in a new relationship with a male for 4 months. She recently found out her partner is in a relationship with another woman. Before her recent relationship, she was single for 7 years. She reports stress due to her relationship situation. She notes that she recently ended sexual relationship with her partner Reports hemorrhoids with mild' pain for the past 3 weeks. No changes in bowel habits. She notes that her hemorrhoids recurs when she is experiencing stress. She has been using an OTC cream without relief She notes that she was prescribed medication for anxiety and depression while in [place]. She does not recall the name of the medication and notes she never took the medication. She notes history of psychotherapy at childhood She notes that she is currently unemployed and receiving unemployment benefits She is interested in connecting with a therapist [facility] Medical History (Updated 11/17/23 @ 12:42 by Annalee Thomas CNP) Osteoporosis High cholesterol No pertinent past medical history Surgical History (Updated 11/17/23 @ 09:28 by Yanelis Martinez MA) Hx of appendectomy H/O: hysterectomy Hx of colonoscopy History of esophagogastroduodenoscopy (EGD) Family History Mother High blood pressure High cholesterol Diabetes Cardiovascular disease Father Cardiovascular disease High blood pressure Diabetes High cholesterol Family/Other High blood pressure Diabetes Social History Housing: Apartment Alcohol intake: current Alcohol intake frequency: does not drink Patient Tobacco Use Status: Never used Tobacco e-Cigarette/Vaping Use: Never Used service: No Current occupational status: unemployed Cognitive needs: No Hearing needs: Yes Vision needs: No Questionnaire PHQ-9 Over the last 2 weeks, how often have you been bothered by any of the following problems? 1. Little interest or pleasure in doing things: more than half the days 2. Feeling down, depressed, or hopeless: more than half the days 3. Trouble falling or staying asleep, or sleeping too much: more than half the days 4. Feeling tired or having little energy: more than half the days 5. Poor appetite or overeating: more than half the days 6. Feeling bad about yourself - or that you are a failure or have let yourself or your family down: more than half the days 7. Trouble concentrating on things, such as reading the newspaper or watching television: several days 8. Moving or speaking so slowly that other people could have noticed. Or the opposite - being so fidgety or restless that you have been moving around a lot more than usual: not at all 9. Thoughts that you would be better off or of hurting yourself in some way: not at all Total score: 13 Depression Screening Interpretation: Positive Depression Screening Follow-up: Existing condition and Community Mental Health Worker F/U Depression Screening Done: Yes 74487 - PHQ-9 Billing: Yes Source: Developed by Drs. Zion Laurent, Mickie Kiran, Hamlet Gonzalez and colleagues, with an educational jose from [employer]. Thrive Questionnaire Date Thrive assessed: 11/17/23 I am a: Patient What is your living situation today?: I have a steady place to live Within the past 12 months, did the food you bought not last and you didn't have the money to get more?: Never true Within the past 12 months, did you worry whether your food would run out before you got money to buy more?: Never true Do you have trouble paying for medicines?: No Do you have trouble getting transportation to medical appointments?: No Do you have trouble paying your heating and electricity bill?: No Do you have trouble taking care of your child, family member or friend?: No Do you have trouble with day-to-day activities such as bathing, preparing meals, shopping, managing finances, etc.?: No Are you currently unemployed and looking for a job?: Yes Are you interested in more education?: Yes Please select the resources that you would like help with: Job search/training and Education Currently or been in a relationship where the following occur: no concerns reported THRIVE Score: 0 AUDIT C Alcohol Use Questionnaire (AUDIT-C) 1. How often do you have a drink containing alcohol?: Never 3. How often do you have six or more drinks on one occasion?: Never Total Score: 0 KOSTAS-7 AMB Questionnaire KOSTAS-7 Date KOSTAS - 7 assessed: 11/17/23 Feeling nervous, anxious, or on edge: 2 = More than half the days Not being able to stop or control worryin = Several days Worrying too much about different things: 1 = Several days Trouble relaxin = Several days Being so restless that it is hard to sit still: 1 = Several days Becoming easily annoyed or irritable: 0 = Not at all Feeling afraid as if something awful might happen: 0 = Not at all Total KOSTAS-7 score (0-4 normal; 5-9 mild; 10-14 moderate; 15-21 severe): 6 Source: Developed by Drs. Zion Laurent, Mickie Kiran, Hamlet Gonzalez and colleagues, with an educational jose from [employer]. KOSTAS-7 Assessment Billing KOSTAS-7 Assessment Tool: KOSTAS-7 Assessment 58108 Review of Systems Const Details: Const Denies chills, Denies fatigue, Denies fever(s), Denies headache(s) and Denies weakness ENT Denies dizziness and Denies headache(s) Card Denies chest pain, Denies lightheadedness, Denies dyspnea and Denies other (Palpitations) Resp Denies cough, Denies dyspnea, Denies wheezing and Denies other ( shortness of breath) GI Reports hemorrhoids, Denies abdominal pain, Denies melena, Denies hematochezia, Denies change in bowel habits, Denies dyspepsia and Denies nausea Denies hematuria and Denies dysuria Musc Denies abnormal gait, Denies myalgias, Denies arthralgias, Denies numbness and Denies tingling Skin/Breast Denies rash, Denies unusual bruising and Denies wounds Neuro Denies abnormal gait, Denies dizziness, Denies headache(s), Denies memory loss, Denies numbness, Denies Sensory deficit (Neuro), Denies tingling and Denies weakness Psych Denies anxiety, Denies depression, Denies memory loss Endo Denies cold intolerance, Denies fatigue, Denies heat intolerance, Denies polydipsia and Denies polyuria Aller/Immun Denies wheezing Physical exam (Primary Care) Vital Signs: Last Vital Signs Temp 97.3 F 11/17/23 09:13 Pulse 109 H 11/17/23 09:13 Resp 13 11/17/23 09:13 BP 130/90 H 11/17/23 09:33 Pulse Ox 98 11/17/23 09:13 Oxygen Delivery Method Room Air 11/17/23 09:13 BMI result Body Mass Index 20.4 Tobacco/Smoking Status: Tobacco use Status Tobacco use date assessed 11/17/23 11/17/23 09:24 Patient Tobacco Use Status Never used Tobacco 11/17/23 09:12 e-Cigarette/Vaping Use Never Used 11/17/23 09:24 PHQ-9: PHQ-9 Score PHQ-9: Total score 13 11/17/23 10:15 Depression Screening Interpretation: Positive Depression Screening Follow-up: Existing condition and Community Mental Health Worker F/U Thrive Assessment: Date of Thrive Assessment Date Thrive assessed 11/17/23 11/17/23 09:26 Currently or been in a relationship where the following occur: no concerns reported Const Other: General: no acute distress and well developed Nutritional Appearance: well nourished Orientation/consciousness: patient oriented x3 HENMT Head: Yes normocephalic and Yes atraumatic Eyes General: appearance normal, both eyes and all related structures Pupils: Equal, round and reactive pupils present EOM: EOMs intact bilaterally Resp Effort & Inspection: normal respiratory effort Auscultation: clear to auscultation bilaterally Cardio Rate: regular rate Rhythm: regular rhythm Heart sounds: S1 normal heart sound present, S2 normal heart sound present, no gallops, no murmurs and no rubs GI Palpation (GI): No Abdominal aortic bruit present, Soft to palpation, nontender, No hepatosplenomegaly present and No Rebound tenderness present Auscultation: normal bowel sounds General: Yes no CVA tenderness Back/Spine/Pelvis Back: no CVA tenderness Cervical Spine: cervical ROM normal and No Cervical spine tenderness Thoracic/Lumbar Spine: thoraco-lumbar ROM normal, No pain with thoraco-lumbar ROM, No thoracic spinal tenderness and No lumbar spinal tenderness Extrem General: Yes normal to inspection, No edema and No calf tenderness Skin General: warm and dry. Normal skin color. Normal skin turgor Lesions: no lesions Rashes: no rashes Trauma: no lacerations or abrasions Wounds: no wounds Nails: normal Neuro General: patient oriented x3, gait normal and no focal neuro deficit Cranial nerves: Yes Equal, round and reactive pupils present Cognition (Neuro): normal cognition Gait exam (Neuro): Normal gait present Sensory Exam: No Sensory deficit (Neuro) Psych Appearance: grossly normal Affect: normal affect Attitude: cooperative Thought process: Normal thought process present Assessment and Plan Assessment & Plan (1) HTN (hypertension): Code(s): I10 - Essential (primary) hypertension Plan: Resting blood pressure is 130/90, slightly above goal of less than 140/90 Lisinopril was discontinued by her previous provider about a year ago due to controlled blood pressure Low-sodium diet and routine exercise encouraged Follow-up in 2 weeks or return sooner with symptoms or concerns Verbalized understanding and agreed with treatment plan (2) Suprapubic pain: Code(s): R10.2 - Pelvic and perineal pain Plan: Suprapubic pain for the past month and a half. Symptoms started with sexual intercourse with a new partner. She recently ended the relationship after she found the he is with another woman Abdomen nontender to palpation Requests evaluation by credit assistant [facility] [place] [facility] [place] Will order STD labs and make changes as needed May take Tylenol ibuprofen for pain or discomfort Warm/cold compresses encouraged Safe sexual practices encouraged Follow-up with worsening or new symptoms Verbalized understanding and agreed with treatment plan (3) Screen for STD (sexually transmitted disease): Code(s): Z11.3 - Encounter for screening for infections with a predominantly sexual mode of transmission Plan: Plan as above (4) Hemorrhoids: Code(s): K64.9 - Unspecified hemorrhoids Plan: Reports hemorrhoids with mild pain which she attributes to stress for situations OTC hemorrhoidal cream has not provided relief Hydrocortisone rectal cream as prescribed Healthy diet and adequate hydration encouraged to prevent constipation Follow-up with worsening or new signs and symptoms Verbalized understanding and agreed with treatment plan (5) Anxiety and depression: Code(s): F41.9 - Anxiety disorder, unspecified; F32.A - Depression, unspecified Plan: Reports significant amount of stress from recent relationship situation and break up; tearful as she explains She notes psychiatry history with psychotherapy at childhood and medication that was prescribed but she never took PHQ-9 and KOSTAS-7 scores revealed mild depression and moderate anxiety respectively Routine exercise encouraged She met with the community navigator who would refer her to a therapist Follow-up in 2 weeks or return sooner with worsening or new symptoms Verbalized understanding and agreed with treatment plan (6) Laboratory tests ordered as part of a complete physical exam (CPE): Code(s): Z00.00 - Encounter for general adult medical examination without abnormal findings Plan: Fasting labs ordered as part of a complete physical exam. Advised to fast for at least 10 hours before getting labs drawn. May drink water Verbalized understanding and agreed with treatment plan. Orders: Orders HIV Ab/Ag Today K64.9 - Unspecified hemorrhoids, Z11.3 - Encounter for screening for infections with a predominantly sexual mode of transmission Hepatitis B,C Profile Today R10.2 - Pelvic and perineal pain, Z11.3 - Encounter for screening for infections with a predominantly sexual mode of transmission Syphilis Screen Today R10.2 - Pelvic and perineal pain, Z11.3 - Encounter for screening for infections with a predominantly sexual mode of transmission CT NG by PCR Today R10.2 - Pelvic and perineal pain, Z11.3 - Encounter for screening for infections with a predominantly sexual mode of transmission Complete Blood Count Auto Diff Today R10.2 - Pelvic and perineal pain, Z00.00 - Encounter for general adult medical examination without abnormal findings Comprehensive [place]. Panel Fast Today R10.2 - Pelvic and perineal pain, Z00.00 - Encounter for general adult medical examination without abnormal findings Lipid Panel Today Z00.00 - Encounter for general adult medical examination without abnormal findings TSH reflex Free T4 Today Z00.00 - Encounter for general adult medical examination without abnormal findings UA CC w/rflx Micro + Cult Today Z00.00 - Encounter for general adult medical examination without abnormal findings Referrals [employer] Referral R10.2 - Pelvic and perineal pain Medications: New hydrocortisone-pramoxine 1-1 % 1 appl MA BID PRN 30 grams 0RF itching/pain Coding Level of Care Code New Pt Level 4 (84712) Diagnoses HTN (hypertension) I10 Suprapubic pain R10.2 Screen for STD (sexually transmitted disease) Z11.3 Hemorrhoids K64.9 Anxiety and depression F41.9; F32.A Laboratory tests ordered as part of a complete physical exam (CPE) Z00.00 Additional Codes KOSTAS-7 Assessment Billing - KOSTAS-7 Assessment Tool: KOSTAS-7 Assessment 93911 ([id number])
[2023-11-17 09:13] VITALS: BP 138/84; PULSE 109; RESP 13; TEMP 36.3; O2SAT 98; BMI 20.4
[2023-11-17 09:33] VITALS: BP 130/90; PULSE 88
== END 2023-11-17 10:10 | disposition home or self-care (01) ==
PROVIDERS: PCP Hospitalist; Visit Provider Nurse Practitioner Family
DX: Z00.00 Encounter for general adult medical examination without abnormal findings (principal); R10.2 Pelvic and perineal pain; K64.9 Unspecified hemorrhoids; F32.A Depression, unspecified; F41.9 Anxiety disorder, unspecified; I10 Essential (primary) hypertension; Z11.3 Encounter for screening for infections with a predominantly sexual mode of transmission
CPT/HCPCS: 96127; 99204; 99386

== ENCOUNTER 2023-11-24 09:11 | Outpatient (REF) | payer OTHER, SELFPAY ==
[2023-11-24 09:24] LABS: MANUAL DIFF FLAG NO
[2023-11-24 09:49] LABS: Basophils Percent Auto 0.6 % (0-2); Eosinophils Absolute Auto 0.1 X10*3/uL (0.0-0.4); Hematocrit 37.8 % (37.0-47.0); Hemoglobin 12.3 g/dl (12.0-16.0); Imm Gran Abs Auto 0.02 X10*3/uL (0.00-0.03); Imm Gran Pct Auto 0.4 % (0.0-0.4); Lymphocytes Absolute Auto 1.6 X10*3/uL (1.2-4.9); Lymphocytes Percent Auto 31.3 % (20-40); Mean Corpuscular HGB Conc 32.5 g/dl (31.0-35.0); Mean Corpuscular Hemoglobin 29.8 pg (27.0-33.0); Mean Corpuscular Volume 91.5 fL (80.0-98.0); Mean Platelet Volume 10.5 fL (9.4-12.3); Monocytes Absolute Auto 0.6 X10*3/uL (0.1-1.2); Monocytes Percent Auto 10.6 % (2-11); Neutrophils Absolute Auto 2.9 x10*3/uL (2.0-8.3); Neutrophils Percent Auto 56.1 % (45-73); Platelet Count 232 X10*3/uL (160-400); Red Blood Count 4.13 X10*6/uL (4.20-5.50); White Blood Count 5.2 X10*3/uL (4.8-10.8)
[2023-11-24 10:03] LABS: Appearance Urine Clear; Color Urine Yellow; Glucose Urine UA Negative (Negative); Leukocyte Esterase Urine Negative (Negative); Nitrite Urine Negative (Negative); PH 5.5 (5.0-9.0); Specific Gravity - Urine >= 1.030 (1.005-1.025); Urine Blood Negative (Negative); Urine Ketones Negative (Negative); Urine Protein Trace mg/dL (Neg-Trace)
[2023-11-24 10:24] LABS: Alanine Aminotransferase 14 U/L (0-31); Albumin Level 4.3 g/dL (3.5-5.0); Alkaline Phosphatase 51 U/L (39-117); Anion Gap 13 (12-20); Aspartate Amino Transferase 16 U/L (5-31); Bilirubin Total 0.5 mg/dL (0.0-1.0); Blood Urea Nitrogen 16 mg/dL (9-16); Calcium 9.5 mg/dL (8.4-10.2); Carbon Dioxide 25 mmol/L (22-29); Chloride 106 mmol/L (96-108); Cholesterol 178 mg/dL (<200); Estimated Glomerular Filt Rate > 60; Glucose Fasting 91 mg/dL (60-99); HDL Cholesterol 49 mg/dL (>40); LDL Cholesterol Calculated 107 mg/dL (<100); Potassium 3.6 mmol/L (3.3-5.1); Sodium 140 mmol/L (135-145); Total Protein 7.6 g/dL (6.5-8.0); Triglycerides 112 mg/dL (<150)
[2023-11-24 10:38] LABS: Syphilis Screen Nonreactive (Nonreactive)
[2023-11-24 10:41] LABS: TSH reflex Free T4 1.38 uIU/mL (0.32-4.0)
[2023-11-24 10:42] LABS: HBS Num1 110.09 mIU/mL (0-7.99); HBc Num1 0.17 S/CO (0.00-0.79); HBsAGNum1 0.34 S/CO (0.00-0.99); HIV AB/AG Nonreactive (Nonreactive); HIV Num 1 0.06 S/CO (0.00-0.99); Hepatitis B Core Antibody Nonreactive (Nonreactive); Hepatitis B Surface Antigen Negative (Negative); ~HepC Num1 0.11 S/CO (0.00-0.79); ~Hepatitis B Surface Antibody REACTIVE (Nonreactive); ~Hepatitis C Antibody Nonreactive (Nonreactive)
== END 2023-11-24 09:12 | disposition home or self-care (01) ==
LOC: HO.LAB 09:11
PROVIDERS: Visit Provider Nurse Practitioner Family
DX: Z00.00 Encounter for general adult medical examination without abnormal findings (principal); Z11.4 Encounter for screening for human immunodeficiency virus [HIV]; R10.2 Pelvic and perineal pain; K64.9 Unspecified hemorrhoids; Z20.2 Contact with and (suspected) exposure to infections with a predominantly sexual mode of transmission
CPT/HCPCS: 36415; 80053; 80061; 81003; 84443; 85025; 86704; 86706; 86780; 86803; 87340; 87389

== ENCOUNTER → 2024-01-12 12:57 | Outpatient (AMB) | payer OTHER, SELFPAY ==
--- NOTE | 2024-01-12 13:07 | A.OFFPC_ITS ---
Vital Signs 01/12/24 13:08 Height 5 ft 7 in Weight 132 lb 8 oz BMI 20.8 BP 122/66 Blood Pressure Location Lt brachial Position Sitting Respiration 12 Pulse 97 Pulse Source Pulse Oximeter Pulse Oximetry (%) 99 Oxygen Delivery Method Room Air Intake Visit Reasons: HTN, anxiety/depression Intake Note: Patient is here to follow up for hypertension and anxiety and depression. Patient is looking for virtual therapy and/or weekend availability. Patient reports she has been feeling much better about her anxiety and depression. 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 Accompanied by: Self / Same As Patient Allergies No Known Allergies Allergy (Verified 01/12/24 13:21) Medication List - Last Reconciled 01/12/24 by Annalee Thomas CNP ferrous sulfate 325 mg PO DAILY folic acid 1 mg PO DAILY hydrocortisone-pramoxine 1-1 % 1 appl [place] BID PRN omega-3 acid ethyl esters 1 cap PO DAILY simvastatin 20 mg PO DAILY Tobacco use date assessed: 11/17/23 HPI HPI Comments History of Present Illness Details 44-year-old female presents for hyperten bindu, anxiety, and depression follow-up Her last visit was when she established care about 2 months ago She had routine and STD labs done; findings were unremarkable. She did not do labs for chlamydia and gonorrhea She notes that her anxiety and depression symptoms have significantly improved. She notes that she started feeling better after she started a job. She met some supportive coworkers. She also started to spiritism She states that she was contacted to schedule an appointment to establish with a therapist. However, she has been very busy with work and plans on calling back to schedule a time that will work with her work schedule She offers no complaints and denies acute symptoms at this time [facility] Medical History (Updated 11/17/23 @ 12:42 by Annalee Thomas CNP) Osteoporosis High cholesterol No pertinent past medical history Surgical History (Updated 11/17/23 @ 09:28 by Yanelis Martinez MA) Hx of appendectomy H/O: hysterectomy Hx of colonoscopy History of esophagogastroduodenoscopy (EGD) Family History Mother High blood pressure High cholesterol Diabetes Cardiovascular disease Father Cardiovascular disease High blood pressure Diabetes High cholesterol Family/Other High blood pressure Diabetes Social History Housing: Apartment Alcohol intake: current Alcohol intake frequency: does not drink Patient Tobacco Use Status: Never used Tobacco e-Cigarette/Vaping Use: Never Used service: No Current occupational status: employed 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 1. Little interest or pleasure in doing things: not at all 2. Feeling down, depressed, or hopeless: not at all 3. Trouble falling or staying asleep, or sleeping too much: not at all 4. Feeling tired or having little energy: not at all 5. Poor appetite or overeating: not at all 6. Feeling bad about yourself - or that you are a failure or have let yourself or your family down: not at all 7. Trouble concentrating on things, such as reading the newspaper or watching television: not at all 8. Moving or speaking so slowly that other people could have noticed. Or the opposite - being so fidgety or restless that you have been moving around a lot more than usual: not at all 9. Thoughts that you would be better off or of hurting yourself in some way: not at all Total score: 0 Depression Screening Interpretation: Negative Depression Screening Done: Yes 95159 - PHQ-9 Billing: Yes Source: Developed by Drs. Zion Laurent, Mickie Kiran, Hamlet Gonzalez and colleagues, with an educational jose from [employer] Thrive Questionnaire Date Thrive assessed: 11/17/23 KOSTAS-7 AMB Questionnaire KOSTAS-7 Date KOSTAS - 7 assessed: 01/12/24 Feeling nervous, anxious, or on edge: 0 = Not at all Not being able to stop or control worryin = Not at all Worrying too much about different things: 0 = Not at all Trouble relaxin = Not at all Being so restless that it is hard to sit still: 1 = Several days Becoming easily annoyed or irritable: 0 = Not at all Feeling afraid as if something awful might happen: 0 = Not at all Total KOSTAS-7 score (0-4 normal; 5-9 mild; 10-14 moderate; 15-21 severe): 1 Source: Developed by Drs. Zion Laurent, Mickie Kiran, Hamlet Gonzalez and colleagues, with an educational jose from [employer] KOSTAS-7 Assessment Billing KOSTAS-7 Assessment Tool: KOSTAS-7 Assessment 53570 Review of Systems Const Details: Const Denies chills, Denies fatigue, Denies fever(s), Denies headache(s) and Denies weakness ENT Denies dizziness and Denies headache(s) Card Denies chest pain, Denies lightheadedness, Denies dyspnea and Denies other (Palpitations) Resp Denies cough, Denies dyspnea, Denies wheezing and Denies other ( shortness of breath) GI Denies abdominal pain, Denies melena, Denies hematochezia, Denies change in bowel habits, Denies dyspepsia and Denies nausea Denies hematuria and Denies dysuria Musc Denies abnormal gait, Denies myalgias, Denies arthralgias, Denies numbness and Denies tingling Skin/Breast Denies rash, Denies unusual bruising and Denies wounds Neuro Denies abnormal gait, Denies dizziness, Denies headache(s), Denies memory loss, Denies numbness, Denies Sensory deficit (Neuro), Denies tingling and Denies weakness Psych Denies anxiety, Denies depression, Denies memory loss Endo Denies cold intolerance, Denies fatigue, Denies heat intolerance, Denies polydipsia and Denies polyuria Aller/Immun Denies wheezing Physical exam (Primary Care) Vital Signs: Last Vital Signs Pulse 97 01/12/24 13:08 Resp 12 01/12/24 13:08 BP 122/66 01/12/24 13:08 Pulse Ox 99 01/12/24 13:08 Oxygen Delivery Method Room Air 01/12/24 13:08 BMI result Body Mass Index 20.8 Tobacco/Smoking Status: Tobacco use Status Tobacco use date assessed 11/17/23 01/12/24 13:14 Patient Tobacco Use Status Never used Tobacco 01/12/24 13:14 e-Cigarette/Vaping Use Never Used 01/12/24 13:14 Depression Screening Interpretation: Negative Thrive Assessment: Date of Thrive Assessment Date Thrive assessed 11/17/23 01/12/24 13:14 Const Other: General: no acute distress and well developed Nutritional Appearance: well nourished Orientation/consciousness: patient oriented x3 [facility] Head: Yes normocephalic and Yes atraumatic Eyes General: appearance normal, both eyes and all related structures Pupils: Equal, round and reactive pupils present EOM: EOMs intact bilaterally Resp Effort & Inspection: normal respiratory effort Auscultation: clear to auscultation bilaterally Cardio Rate: regular rate Rhythm: regular rhythm Heart sounds: S1 normal heart sound present, S2 normal heart sound present, no gallops, no murmurs and no rubs GI Palpation (GI): No Abdominal aortic bruit present, Soft to palpation, nontender, No hepatosplenomegaly present and No Rebound tenderness present Auscultation: normal bowel sounds General: Yes no CVA tenderness Back/Spine/Pelvis Back: no CVA tenderness Cervical Spine: cervical ROM normal and No Cervical spine tenderness Thoracic/Lumbar Spine: thoraco-lumbar ROM normal, No pain with thoraco-lumbar ROM, No thoracic spinal tenderness and No lumbar spinal tenderness Extrem General: Yes normal to inspection, No edema and No calf tenderness Skin General: warm and dry. Normal skin color. Normal skin turgor Neuro General: patient oriented x3, gait normal and no focal neuro deficit Cranial nerves: Yes Equal, round and reactive pupils present Cognition (Neuro): normal cognition Gait exam (Neuro): Normal gait present Sensory Exam: No Sensory deficit (Neuro) Psych Appearance: grossly normal Affect: normal affect Attitude: cooperative Thought process: Normal thought process present Assessment and Plan Assessment & Plan (1) HTN (hypertension): Code(s): I10 - Essential (primary) hypertension Plan: Blood pressure is controlled, 122/66 Low-sodium diet and routine exercise encouraged Will continue to monitor Recent lab results, including STD results reviewed with the patient; unremarkable findings Advised to produce urine and give to the lab for chlamydia and gonorrhea testing Follow-up in 1 month for an extended physical exam or return sooner with symptoms or concerns Verbalized understanding and agreed with the plan (2) Anxiety and depression: Code(s): F41.9 - Anxiety disorder, unspecified; F32.A - Depression, unspecified Plan: Reports significant improvement of anxiety and depression symptoms. She has been feeling better since she started working. Her coworkers a supportive. She also starts going to spiritism Routine exercise encouraged Advised to schedule an appointment to establish with a therapist Follow-up with worsening or new symptoms Verbalized understanding and agreed with treatment plan Coding Level of Care Code Est Pt Level 3 (38601) Diagnoses HTN (hypertension) I10 Anxiety and depression F41.9; F32.A Additional Codes KOSTAS-7 Assessment Billing - KOSTAS-7 Assessment Tool: KOSTAS-7 Assessment 32014 ([id number])
[2024-01-12 13:08] VITALS: BP 122/66; PULSE 97; RESP 12; O2SAT 99; BMI 20.8
== END ==
PROVIDERS: Visit Provider Nurse Practitioner Family
DX: I10 Essential (primary) hypertension (principal); F41.9 Anxiety disorder, unspecified; F32.A Depression, unspecified
CPT/HCPCS: 99213

== ENCOUNTER 2024-01-12 13:35 | Outpatient (REF) | payer OTHER, SELFPAY ==
[2024-01-13 15:32] LABS: CT PCR NOT DETECTED (Not Detect.); NG PCR NOT DETECTED (Not Detect.)
== END 2024-01-12 13:36 | disposition home or self-care (01) ==
LOC: HO.LAB 13:35
PROVIDERS: Visit Provider Nurse Practitioner Family
DX: Z11.3 Encounter for screening for infections with a predominantly sexual mode of transmission (principal); R10.2 Pelvic and perineal pain
CPT/HCPCS: 0353U

== ENCOUNTER 2024-02-12 14:46 | Outpatient (AMB) | payer OTHER, SELFPAY ==
--- NOTE | 2024-02-12 14:59 | A.OFFVIS_ITS ---
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 No complaints. Last Pap/HPV was few years ago normal, no records available, the patient is status post hysterectomy for myomas and abnormal uterine bleeding Last Mammogram was 5 years ago PFSH Medical History Osteoporosis High cholesterol No pertinent past medical history Surgical History Hx of appendectomy H/O: hysterectomy Hx of colonoscopy History of esophagogastroduodenoscopy (EGD) Family History Mother High blood pressure High cholesterol Diabetes Cardiovascular disease Father Cardiovascular disease High blood pressure Diabetes High cholesterol Family/Other High blood pressure Diabetes Social History Housing: Apartment Alcohol intake: current Alcohol intake frequency: does not drink Patient Tobacco Use Status: Never used Tobacco e-Cigarette/Vaping Use: Never Used service: No Current occupational status: employed 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 Current occupational exposures/hazards: No Cognitive needs: No Hearing needs: Yes Vision needs: No Review of Systems Const All systems reviewed & are unremarkable except as noted in HPI and below Card Reports as per HPI and Reports no additional complaints Resp Reports as per HPI and Reports no additional complaints GI Reports as per HPI and Reports no additional complaints Reports as per HPI Physical Exam Const General: cooperative, healthy appearing and comfortable General: Yes bladder normal to palpation External Female Exam: No lesion Speculum Exam - Vagina: normal appearance of the vagina, normal vaginal discharge and not erythematous Speculum Exam - Cervix: Cervix absent Bimanual exam- vagina & uterus: bladder normal to palpation and uterus absent Bimanual Exam- Adnexa, other: Other (No masses detected) Assessment & Plan Assessment & Plan (1) Well woman exam: Code(s): Z01.419 - Encounter for gynecological examination (general) (routine) without abnormal findings Category: Medical Plan: Cotesting not indicated since the patient does not have history of any abnormal Pap smears and is status post hysterectomy Mammogram ordered. Counseled the patient about the recommended dietary allowance of 1000 mg of Calcium & 600 IU of vitamin D. The patient was instructed to perform monthly self-breast exams and to schedule an annual exam in a year; All questions answered and the patient verbalized understanding. Instructed the patient to schedule annual exam in a year Orders: Orders MM tomosynthesis screening BI Today Z12.31 - Encounter for screening mammogram for malignant neoplasm of breast
[2024-02-12 15:08] VITALS: BP 118/72; BMI 20.7
== END 2024-02-12 15:18 | disposition home or self-care (01) ==
PROVIDERS: Visit Provider Obstetrics & Gynecology
DX: Z01.419 Encounter for gynecological examination (general) (routine) without abnormal findings (principal)
CPT/HCPCS: 99386

== ENCOUNTER → 2024-02-12 14:46 | Outpatient (BNVA) | payer OTHER, SELFPAY | PROVIDERS: Visit Provider Obstetrics & Gynecology | DX: Z01.419 Encounter for gynecological examination (general) (routine) without abnormal findings (principal); R10.2 Pelvic and perineal pain; M81.0 Age-related osteoporosis without current pathological fracture; Z90.710 Acquired absence of both cervix and uterus | CPT/HCPCS: 99386 ==

== ENCOUNTER 2024-03-02 14:41 | Outpatient (REF) | payer OTHER, SELFPAY ==
--- NOTE | ~2024-03-02 | MM_ITS ---
EXAMINATION: MM SCREENING DIGITAL BREAST TOMOSYNTHESIS, BILATERAL CLINICAL INFORMATION: Screening. Asymptomatic. COMPARISON: Mammography: There are no prior mammograms for comparison. TECHNIQUE: Digital breast tomosynthesis is performed in both the craniocaudal and mediolateral oblique views along with computer-aided detection (CAD). Synthesized 2D images are generated from the tomosynthesis. FINDINGS: The breasts are heterogeneously dense, which may obscure small masses (ACR BI-RADS breast composition Category c). There are no significant masses, abnormal calcifications, or other abnormalities. MM/MM tomosynthesis screening BI IMPRESSION: No mammographic evidence of malignancy. ASSESSMENT: BI-RADS BI-RADS 1 - Negative RECOMMENDATION: Routine annual mammography screening. 1 year F/U This examination should not preclude the clinical evaluation of a suspicious palpable abnormality. This patient's information was entered into a reminder system with a target due date for their next mammogram.
== END 2024-03-02 14:42 | disposition home or self-care (01) ==
LOC: HO.MAMMO 14:41
PROVIDERS: PCP Nurse Practitioner Family; Visit Provider Obstetrics & Gynecology
DX: Z12.31 Encounter for screening mammogram for malignant neoplasm of breast (principal)
CPT/HCPCS: 77063; 77067

== ENCOUNTER → 2024-03-02 15:18 | Outpatient (BNV) | payer OTHER, SELFPAY | PROVIDERS: PCP Nurse Practitioner Family; Visit Provider Radiology Diagnostic Radiology | DX: Z12.31 Encounter for screening mammogram for malignant neoplasm of breast (principal) | CPT/HCPCS: 77063; 77067 ==

== ENCOUNTER 2024-03-19 16:03 | Outpatient (AMB) | payer OTHER, SELFPAY ==
[2024-03-19 16:05] VITALS: BP 124/76; PULSE 68; RESP 14; TEMP 36.6; O2SAT 98; BMI 21.2
--- NOTE | 2024-03-19 16:05 | A.OFFPC_ITS ---
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 She was prescribed hydrocortisone-pramoxine cream for hemorrhoids which she stopped using because it was not effective on the fissures. She is tried multiple [id number] regimen without improvement. She reports occasional pain with defecation and bloody stools. She denies constipation. PFSH Medical History Osteoporosis High cholesterol No pertinent past medical history Surgical History Hx of appendectomy H/O: hysterectomy Hx of colonoscopy History of esophagogastroduodenoscopy (EGD) Family History Mother High blood pressure High cholesterol Diabetes Cardiovascular disease Father Cardiovascular disease High blood pressure Diabetes High cholesterol Family/Other High blood pressure Diabetes Social History Housing: Apartment Alcohol intake: current Alcohol intake frequency: does not drink Patient Tobacco Use Status: Never used Tobacco e-Cigarette/Vaping Use: Never Used service: No Current occupational status: employed 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 Zion Laurent, Mickie Kiran, Hamlet Gonzalez and colleagues, with an educational jose from [employer]. Review of Systems Const Details: Const Denies chills, Denies fatigue, Denies fever(s), Denies headache(s) and Denies weakness ENT Denies dizziness and Denies headache(s) Card Denies chest pain, Denies lightheadedness, Denies dyspnea and Denies other (Palpitations) Resp Denies cough, Denies dyspnea, Denies wheezing and Denies other ( shortness of breath) GI Reports anal fissures, Denies abdominal pain, Denies melena, Denies hematochezia, Denies change in bowel habits, Denies dyspepsia and Denies nausea Denies hematuria and Denies dysuria Musc Denies abnormal gait, Denies myalgias, Denies arthralgias, Denies numbness and Denies tingling Skin/Breast Denies rash, Denies unusual bruising and Denies wounds Neuro Denies abnormal gait, Denies dizziness, Denies headache(s), Denies memory loss, Denies numbness, Denies Sensory deficit (Neuro), Denies tingling and Denies weakness Psych Denies anxiety, Denies depression, Denies memory loss Endo Denies cold intolerance, Denies fatigue, Denies heat intolerance, Denies polydipsia and Denies polyuria Aller/Immun Denies wheezing Physical exam (Primary Care) Vital Signs: Last Vital Signs Temp 97.9 F 03/19/24 16:05 Pulse 68 03/19/24 16:05 Resp 14 03/19/24 16:05 BP 124/76 03/19/24 16:05 Pulse Ox 98 03/19/24 16:05 Oxygen Delivery Method Room Air 03/19/24 16:05 BMI result Body Mass Index 21.2 Tobacco/Smoking Status: Tobacco use Status Tobacco use date assessed 11/17/23 03/19/24 16:05 Patient Tobacco Use Status Never used Tobacco 03/19/24 16:05 e-Cigarette/Vaping Use Never Used 03/19/24 16:05 Thrive Assessment: Date of Thrive Assessment Date Thrive assessed 11/17/23 03/19/24 16:05 Const Other: General: no acute distress and well developed Nutritional Appearance: well nourished Orientation/consciousness: patient oriented x3 [facility] Head: Yes normocephalic and Yes atraumatic Eyes General: appearance normal, both eyes and all related structures Pupils: Equal, round and reactive pupils present EOM: EOMs intact bilaterally Resp Effort & Inspection: normal respiratory effort Auscultation: clear to auscultation bilaterally Cardio Rate: regular rate Rhythm: regular rhythm Heart sounds: S1 normal heart sound present, S2 normal heart sound present, no gallops, no murmurs and no rubs GI Palpation (GI): No Abdominal aortic bruit present, Soft to palpation, nontender, No hepatosplenomegaly present and No Rebound tenderness present Auscultation: normal bowel sounds General: Yes no CVA tenderness Back/Spine/Pelvis Back: no CVA tenderness Cervical Spine: cervical ROM normal and No Cervical spine tenderness Thoracic/Lumbar Spine: thoraco-lumbar ROM normal, No pain with thoraco-lumbar ROM, No thoracic spinal tenderness and No lumbar spinal tenderness Extrem General: Yes normal to inspection, No edema and No calf tenderness Skin General: warm and dry. Normal skin color. Normal skin turgor Neuro General: patient oriented x3, gait normal and no focal neuro deficit Cranial nerves: Yes Equal, round and reactive pupils present Cognition (Neuro): normal cognition Gait exam (Neuro): Normal gait present Sensory Exam: No Sensory deficit (Neuro) Psych Appearance: grossly normal Affect: normal affect Attitude: cooperative Thought process: Normal thought process present Assessment and Plan Assessment & Plan (1) Anal fissure: Code(s): K60.2 - Anal fissure, unspecified Plan: Reports painful anal fissures. Has history of hemorrhoids Lidocaine cream ordered. Use as prescribed Advised to perform Sitz baths as needed High-fiber diet encouraged Referred to [facility] gastroenterology Follow-up in 1 month for an extended physical exam return sooner with worsening or new symptoms Verbalized understanding and agreed with treatment plan (2) Hemorrhoids: Code(s): K64.9 - Unspecified hemorrhoids Plan: As above Orders: Referrals Gastroenterology Referral K60.2 - Anal fissure, unspecified, K64.9 - Unspecified hemorrhoids Medications: New lidocaine 3% 1 appl topical BID PRN 28.35 grams 0RF pain Coding Level of Care Code Est Pt Level 4 (02516) Complex EM visit Add On G2211 Diagnoses Anal fissure K60.2 Hemorrhoids K64.9
== END 2024-03-19 16:32 | disposition home or self-care (01) ==
PROVIDERS: PCP Nurse Practitioner Family; Visit Provider Nurse Practitioner Family
DX: K60.2 Anal fissure, unspecified (principal); K64.9 Unspecified hemorrhoids
CPT/HCPCS: 99214; G2211

== ENCOUNTER 2024-06-04 15:04 | Outpatient (AMB) | payer OTHER, SELFPAY ==
--- NOTE | 2024-06-04 15:14 | A.OFFVIS_ITS ---
Vital Signs 06/04/24 15:15 Height 5 ft 7 in Weight 134 lb 7.712 oz BMI 21.1 BP 118/82 Blood Pressure Location Lt brachial Position Sitting Pulse 85 Intake Visit Reasons: Anal Fissue Intake Note: Donna presents in the office as a follow up for her anal fissure. CC: She states that she has been having pains. 2 months ago she had an internal hemorrhoids and she was having blood. The blood stopped and 2 weeks ago she had COVID - she states that she thinks from coughing she may have a hemorrhoids that is now external. She is trying to watch what she eats but she is not sure what is going on. 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 Pt reports having the sensation of bad breath since her teens. Had an EGD at 20 y.o in [place] and was noted to have H Pylori which was successfully eradicated per her report. She has also been going to the dentist twice a year and does not have any dental or gingival disease. Reports having hx of tonsillar stones on the L side as a kid. Currently, no abd symptoms including abd pain, bloating or diarrhea or constipation. 08/12/23: Remains without any GI complaints. Here for follow up for halitosis which remains largely a subjective complaint. Could not tolerate Abx for SIBO and only took the cipro for a couple of days. Stopped due to abd cramping and nausea. (Rifaximin not covered by insurance). Has not seen ENT yet for? tonsillar stones. 06/04/24: Patient requested this visit for rectal bleeding. Has had at least 2 episodes of bleeding per rectum. The 1st time was around 2 months ago when she was noticing it on wiping. Then, a couple of weeks ago, she had upper respiratory infection with a lot of coughing. She thinks that she may have a prolapsed hemorrhoid now because of this which is quite painful and bleed anytime she passes a BM. [facility] Medical History (Updated 08/13/24 @ 10:40 by Cristina Wu MD) Anal pain Osteoporosis High cholesterol No pertinent past medical history Surgical History Hx of appendectomy H/O: hysterectomy Hx of colonoscopy History of esophagogastroduodenoscopy (EGD) Family History Mother High blood pressure High cholesterol Diabetes Cardiovascular disease Father Cardiovascular disease High blood pressure Diabetes High cholesterol Family/Other High blood pressure Diabetes Social History Housing: Apartment Alcohol intake: current Alcohol intake frequency: does not drink Patient Tobacco Use Status: Never used Tobacco e-Cigarette/Vaping Use: Never Used service: No Current occupational status: employed 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 Current occupational exposures/hazards: No Cognitive needs: No Hearing needs: Yes Vision needs: No Review of Systems Const All systems reviewed & are unremarkable except as noted in HPI and below Physical Exam Vital Signs: Last Vital Signs Pulse 85 06/04/24 15:15 BP 118/82 06/04/24 15:15 BMI result Body Mass Index 21.1 No apparent distress Nonicteric Abdomen soft, nondistended rectal: ext hemorrhoid with possible thrombosis, digital exam could not be completed due to severe pain reported by pt Alert and oriented x3, normal gait Assessment & Plan Assessment & Plan (1) Anal pain: Code(s): K62.89 - Other specified diseases of anus and rectum Category: Medical (2) Thrombosed external hemorrhoid: Code(s): K64.5 - Perianal venous thrombosis Category: Medical Plan Reviewed with the patient that pain and rectal bleeding likely due to thrombosed hemorrhoid on exam. However, given the severity of pain, can not rule out anal fissure. Plan: -increase hydration, fiber supplementation -avoid constipation and straining. Can take senna or MiraLax. -start Anusol cream IN to be applied daily at bedtime for 7-10 days -we will also initiate a referral to surgery at this time per her behest. However, she was advised that if symptoms resolve with the above therapy, can call and cancel that appointment. -patient is aware to call us for follow-up PRN Orders: Referrals General Surgery Referral K60.2 - Anal fissure, unspecified, K64.5 - Perianal venous thrombosis Medications: New hydrocortisone acetate (Anusol-HC) Apply at night time for 7-10 days 25 mg IN BEDTIME 12 ea 0RF Coding Level of Care Code Est Pt Level 4 (74586) Diagnoses Anal pain K62.89 Thrombosed external hemorrhoid K64.5
[2024-06-04 15:15] VITALS: BP 118/82; PULSE 85; BMI 21.1
== END 2024-06-04 16:03 | disposition home or self-care (01) ==
PROVIDERS: PCP Nurse Practitioner Family; Visit Provider Internal Medicine
DX: K62.89 Other specified diseases of anus and rectum (principal); K64.5 Perianal venous thrombosis
CPT/HCPCS: 99214

== ENCOUNTER → 2024-06-04 15:04 | Outpatient (BNVA) | payer OTHER, SELFPAY | PROVIDERS: PCP Nurse Practitioner Family; Visit Provider Internal Medicine | DX: K62.89 Other specified diseases of anus and rectum (principal); K64.5 Perianal venous thrombosis | CPT/HCPCS: 99212 ==

== ENCOUNTER 2024-07-15 14:50 | Outpatient (AMB) | payer OTHER, SELFPAY ==
--- NOTE | 2024-07-15 14:51 | A.OFFVIS_ITS ---
Vital Signs 07/15/24 14:56 Height 5 ft 7 in Weight 138 lb 6 oz BMI 21.7 Intake Visit Reasons: Anal Fissure Intake Note: This patient presents for anal fissure assessment. Pt c/o; reports no new complaints. Skill Training Program Coordinator Required: No Medical Staff Services Coordinator: Medical Staff Services Coordinator offered & declined Accompanied by: Self / Same As Patient Allergies No Known Allergies Allergy (Verified 07/15/24 14:57) Medication List - Last Reconciled 07/15/24 by Floyd Doran MD ferrous sulfate 325 mg PO DAILY folic acid 1 mg PO DAILY hydrocortisone acetate (Anusol-HC) 25 mg DC BEDTIME omega-3 acid ethyl esters 1 cap PO DAILY simvastatin 20 mg PO DAILY HPI HPI Anal Fissure: Details: [age] year old female referred for a possible anal fissure. She states that about 2-3 weeks ago, she was having pain in her anus. She says that this would happen after her bowel movements. She also would notice small amounts of blood once in a while prior to that. She denies being constipated She says that the pain has now resolved. She also says that she knows she has small hemorrhoids. [facility] Medical History (Updated 07/15/24 @ 15:08 by Floyd Doran MD) Anal pain Osteoporosis High cholesterol No pertinent past medical history Surgical History Hx of appendectomy H/O: hysterectomy Hx of colonoscopy History of esophagogastroduodenoscopy (EGD) Family History Mother High blood pressure High cholesterol Diabetes Cardiovascular disease Father Cardiovascular disease High blood pressure Diabetes High cholesterol Family/Other High blood pressure Diabetes Social History Housing: Apartment Alcohol intake: current Alcohol intake frequency: does not drink Patient Tobacco Use Status: Never used Tobacco e-Cigarette/Vaping Use: Never Used service: No Current occupational status: employed 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 Current occupational exposures/hazards: No Cognitive needs: No Hearing needs: Yes Vision needs: No Review of Systems Const Denies chills and Denies fever(s) Card Denies chest pain, Denies dyspnea and Denies dyspnea on exertion Resp Denies cough, Denies dyspnea and Denies dyspnea on exertion GI Reports hematochezia and Denies change in bowel habits Denies hematuria Musc Denies back pain and Denies limited range of motion Neuro Denies focal weakness and Denies convulsions Psych Denies depression and Denies mood swings Physical Exam Vital Signs: BMI result Body Mass Index 21.7 Const General: comfortable and no acute distress Orientation/consciousness: patient oriented x3 Neck Neck: Yes no lymphadenopathy Resp Auscultation: clear to auscultation bilaterally Cardio Rhythm: regular rhythm GI Other: Rectal exam shows small external hemorrhoids, no anal fissure Palpation (GI): Soft to palpation, nontender and no guarding Neuro General: patient oriented x3 Office Procedures Anoscopy She was in dominique-knife position. The anoscope was gently inserted. A full examination of the anal canal was done. She had small internal external hemorrhoids. There was no fissure. There was no lesion in the anal canal. There were no ulcerations There was no blood. She had good sphincter tone. There was no induration on digital exam [id number] Assessment & Plan Assessment & Plan (1) Anal pain: Code(s): K62.89 - Other specified diseases of anus and rectum Category: Medical Plan: Current exam shows small internal external hemorrhoids. I did not see any fissure or any ulceration. I explained to have the above findings. I told her that her episodes of pain the 2 weeks ago may probably be secondary to a swollen hemorrhoid at that time. I told her she does not need any cream for now. However, she if she does have recurrence, I advised her to come back to the office to be re-evaluated She is comfortable with the plan. Coding Level of Care Code New Pt Level 3 (97703) Diagnoses Anal pain K62.89 CPT Codes Details - CPT: [id number] ([id number])
[2024-07-15 14:56] VITALS: BMI 21.7
== END 2024-07-15 15:08 | disposition home or self-care (01) ==
PROVIDERS: PCP Nurse Practitioner Family; Visit Provider Surgery
DX: K62.89 Other specified diseases of anus and rectum (principal); K64.8 Other hemorrhoids
CPT/HCPCS: 46600; 99203

== ENCOUNTER → 2024-07-15 14:50 | Outpatient (BNVA) | payer OTHER, SELFPAY | PROVIDERS: PCP Nurse Practitioner Family; Visit Provider Surgery | DX: K62.89 Other specified diseases of anus and rectum (principal) | CPT/HCPCS: 46600; 99202 ==

== ENCOUNTER 2024-08-13 09:07 | Outpatient (AMB) | payer OTHER, SELFPAY ==
--- NOTE | 2024-08-13 09:11 | MHC.PC.OV ---
Vital Signs 08/13/24 09:13 Height 5 ft 7 in Weight 140 lb BMI 21.9 BP 126/76 Blood Pressure Location Rt brachial Position Sitting Respiration 12 Pulse 90 Pulse Source Pulse Oximeter Temp 99.1 F Temp Source Oral Pulse Oximetry (%) 99 Oxygen Delivery Method Room Air Intake Visit Reasons: Face rash sick visit Intake Note: Rash on face. Was painful last week. 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 Painful pimple like lesions, some vesicular on the left forehead. Improving this week, dry. Some scattered mild acne. She has been stressed. No fevers ROS see HPI PHYSICAL EXAM: GENERAL: Alert and oriented x 3. NAD EYES: EOMI. Anicteric. HENT: Moist mucous membranes. No scleral icterus. No cervical lymphadenopathy. LUNGS: Clear to auscultation bilaterally. CARDIOVASCULAR: Regular rate and rhythm. No murmur. No JVD. ABDOMEN: Soft, non-tender +bs EXTREMITIES: No edema. Non-tender. SKIN: V1 left dried pustules. scattered mild acne NEUROLOGIC: No focal neurological deficits. CN II-XII grossly intact PSYCHIATRIC: Cooperative. Appropriate mood and affect [facility] Medical History (Updated 08/13/24 @ 10:40 by Cristina Wu MD) Anal pain Osteoporosis High cholesterol No pertinent past medical history Surgical History Hx of appendectomy H/O: hysterectomy Hx of colonoscopy History of esophagogastroduodenoscopy (EGD) Family History Mother High blood pressure High cholesterol Diabetes Cardiovascular disease Father Cardiovascular disease High blood pressure Diabetes High cholesterol Family/Other High blood pressure Diabetes Social History Housing: Apartment Alcohol intake: current Alcohol intake frequency: does not drink Patient Tobacco Use Status: Never used Tobacco e-Cigarette/Vaping Use: Never Used service: No Current occupational status: employed 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 1. Little interest or pleasure in doing things: not at all 2. Feeling down, depressed, or hopeless: not at all 3. Trouble falling or staying asleep, or sleeping too much: not at all 4. Feeling tired or having little energy: not at all 5. Poor appetite or overeating: not at all 6. Feeling bad about yourself - or that you are a failure or have let yourself or your family down: not at all 7. Trouble concentrating on things, such as reading the newspaper or watching television: not at all 8. Moving or speaking so slowly that other people could have noticed. Or the opposite - being so fidgety or restless that you have been moving around a lot more than usual: not at all 9. Thoughts that you would be better off or of hurting yourself in some way: not at all Total score: 0 Source: Developed by Drs. Zion Laurent, Mickie Kiran, Hamlet Gonzalez and colleagues, with an educational jose from [employer]. Thrive Questionnaire Date Thrive assessed: 11/17/23 I am a: Patient What is your living situation today?: I have a steady place to live Within the past 12 months, did the food you bought not last and you didn't have the money to get more?: Never true Within the past 12 months, did you worry whether your food would run out before you got money to buy more?: Never true Do you have trouble paying for medicines?: No Do you have trouble getting transportation to medical appointments?: No Do you have trouble paying your heating and electricity bill?: No Do you have trouble taking care of your child, family member or friend?: No Do you have trouble with day-to-day activities such as bathing, preparing meals, shopping, managing finances, etc.?: No Are you currently unemployed and looking for a job?: No Are you interested in more education?: No Please select the resources that you would like help with: None Currently or been in a relationship where the following occur: I choose not to answer THRIVE Score: 0 AUDIT C Alcohol Use Questionnaire (AUDIT-C) 1. How often do you have a drink containing alcohol?: Never Total Score: 0 KOSTAS-7 AMB Questionnaire KOSTAS-7 Date KOSTAS - 7 assessed: 01/12/24 Feeling nervous, anxious, or on edge: 0 = Not at all Not being able to stop or control worryin = Not at all Worrying too much about different things: 0 = Not at all Trouble relaxin = Not at all Being so restless that it is hard to sit still: 0 = Not at all Becoming easily annoyed or irritable: 0 = Not at all Feeling afraid as if something awful might happen: 0 = Not at all Total KOSTAS-7 score (0-4 normal; 5-9 mild; 10-14 moderate; 15-21 severe): 0 Source: Developed by Drs. Zion Laurent, Mickie Kiran, Hamlet Gonzalez and colleagues, with an educational jose from [employer]. Physical exam (Primary Care) Vital Signs: Last Vital Signs Temp 99.1 F 08/13/24 09:13 Pulse 90 08/13/24 09:13 Resp 12 08/13/24 09:13 BP 126/76 08/13/24 09:13 Pulse Ox 99 08/13/24 09:13 Oxygen Delivery Method Room Air 08/13/24 09:13 BMI result Body Mass Index 21.9 Tobacco/Smoking Status: Tobacco use Status Tobacco use date assessed 11/17/23 08/13/24 09:18 Patient Tobacco Use Status Never used Tobacco 08/13/24 09:18 e-Cigarette/Vaping Use Never Used 08/13/24 09:18 PHQ-9: PHQ-9 Score PHQ-9: Total score 0 08/13/24 09:18 Thrive Assessment: Date of Thrive Assessment Date Thrive assessed 11/17/23 08/13/24 09:18 Currently or been in a relationship where the following occur: I choose not to answer Coding Level of Care Code Est Pt Level 4 (11726) Diagnoses Herpes zoster without complication B02.9 Herpes zoster complications: without complications Acne, unspecified acne type L70.9 Acne type: unspecified acne Assessment & Plan Assessment & Plan (1) Shingles rash: Code(s): B02.9 - Zoster without complications Category: Medical Qualifiers: Herpes zoster complications: without complications Qualified Code(s): B02.9 - Zoster without complications Plan: Resolving left V1 shingles (2) Acne: Code(s): L70.9 - Acne, unspecified Category: Medical Qualifiers: Acne type: unspecified acne Qualified Code(s): L70.9 - Acne, unspecified Plan: clindamycin get sent Medications: New clindamycin phosphate 1% 1 appl topical DAILY 75 mL 1RF
[2024-08-13 09:13] VITALS: BP 126/76; PULSE 90; RESP 12; TEMP 37.3; O2SAT 99; BMI 21.9
== END 2024-08-13 09:42 | disposition home or self-care (01) ==
PROVIDERS: PCP Internal Medicine; Visit Provider Internal Medicine
DX: B02.9 Zoster without complications (principal); L70.9 Acne, unspecified

== ENCOUNTER → 2024-08-13 09:07 | Outpatient (BNVA) | payer OTHER, SELFPAY | PROVIDERS: PCP Nurse Practitioner Family; Visit Provider Internal Medicine | DX: B02.9 Zoster without complications (principal); L70.9 Acne, unspecified | CPT/HCPCS: 96127; 99212 ==

== ENCOUNTER 2024-09-20 14:28 | Outpatient (REF) | payer OTHER, SELFPAY ==
[2024-09-20 19:16] LABS: Appearance Urine Clear; Color Urine Yellow; Glucose Urine UA Negative (Negative); Leukocyte Esterase Urine Negative (Negative); Nitrite Urine Negative (Negative); PH 5.5 (5.0-9.0); Specific Gravity - Urine >= 1.030 (1.005-1.025); Urine Blood Negative (Negative); Urine Ketones Negative (Negative); Urine Protein Negative (Neg-Trace)
== END 2024-09-20 14:29 | disposition home or self-care (01) ==
LOC: HO.LAB 14:28
PROVIDERS: PCP Internal Medicine; Visit Provider Internal Medicine
DX: R10.2 Pelvic and perineal pain (principal); R10.84 Generalized abdominal pain; Z90.49 Acquired absence of other specified parts of digestive tract; Z90.710 Acquired absence of both cervix and uterus
CPT/HCPCS: 81002; 81003; 99212

== ENCOUNTER 2024-09-20 14:28 | Outpatient (AMB) | payer OTHER, SELFPAY ==
--- NOTE | 2024-09-20 15:28 | A.OFFPC_ITS ---
Vital Signs 09/20/24 15:46 Height 5 ft 7 in BP 96/64 Blood Pressure Location Lt brachial Position Sitting Pulse 64 Pulse Source Pulse Oximeter Pulse Oximetry (%) 98 Oxygen Delivery Method Room Air Intake Visit Reasons: Infection and pain in groin area Intake Note: Pain in groin. Asset Protection Agent Required: No Allergies No Known Allergies Allergy (Verified 09/20/24 15:29) Tobacco use date assessed: 11/17/23 Dental Screening Dental Screen Date: 11/17/23 HPI HPI Comments History of Present Illness Details 44-year-old female presents for hyperten bindu, anxiety, and depression presenting for abdominal pain Patient notes frequent pelvic pain, cramping, abdominal pain, bloating. Worst in the right lower quadrant. Not worse with eating, drinking. History of a ppendectomy, hysterectomy. History of anal fissures, pain in the perineum. Denies vaginal discharge, dysuria. ROS see HPI PHYSICAL EXAM: GENERAL: Alert and oriented x 3. NAD EYES: EOMI. Anicteric. HENT: Moist mucous membranes. No scleral icterus. No cervical lymphadenopathy. LUNGS: Clear to auscultation bilaterally. CARDIOVASCULAR: Regular rate and rhythm. No murmur. No JVD. ABDOMEN: Soft, mild tenderness and weakness periumbilical EXTREMITIES: No edema. Non-tender. SKIN: V1 left dried pustules. scattered mild acne NEUROLOGIC: No focal neurological deficits. CN II-XII grossly intact PSYCHIATRIC: Cooperative. Appropriate mood and affect [facility] Medical History (Updated 10/04/24 @ 01:55 by Cristina Wu MD) Pelvic pain Anal pain Osteoporosis High cholesterol No pertinent past medical history Surgical History (Updated 09/20/24 @ 15:50 by Cristina Wu MD) Hx of appendectomy H/O: hysterectomy Hx of colonoscopy History of esophagogastroduodenoscopy (EGD) Family History Mother High blood pressure High cholesterol Diabetes Cardiovascular disease Father Cardiovascular disease High blood pressure Diabetes High cholesterol Family/Other High blood pressure Diabetes Social History (Updated 09/20/24 @ 15:30 by Leesa Perez CMA) Housing: Apartment Alcohol intake: current Alcohol intake frequency: does not drink Patient Tobacco Use Status: Never used Tobacco e-Cigarette/Vaping Use: Never Used Use of substances other than those prescribed or required for medical reasons: No service: No Current occupational status: employed 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 [employer] Current occupational exposures/hazards: No Cognitive needs: No Hearing needs: Yes Vision needs: No Questionnaire Thrive Questionnaire Date Thrive assessed: 08/13/24 I am a: Patient What is your living situation today?: I have a steady place to live Within the past 12 months, did the food you bought not last and you didn't have the money to get more?: Never true Within the past 12 months, did you worry whether your food would run out before you got money to buy more?: Never true Do you have trouble paying for medicines?: No Do you have trouble getting transportation to medical appointments?: No Do you have trouble paying your heating and electricity bill?: No Do you have trouble taking care of your child, family member or friend?: No Do you have trouble with day-to-day activities such as bathing, preparing meals, shopping, managing finances, etc.?: No Are you currently unemployed and looking for a job?: No Are you interested in more education?: No Please select the resources that you would like help with: None Currently or been in a relationship where the following occur: I choose not to answer THRIVE Score: 0 KOSTAS-7 AMB Questionnaire KOSTAS-7 Date KOSTAS - 7 assessed: 01/12/24 Source: Developed by Drs. Zion Laurent, Mickie Kiran, Hamlet Gonzalez and colleagues, with an educational jose from [employer]. Physical exam (Primary Care) Vital Signs: Last Vital Signs Pulse 64 09/20/24 15:46 BP 96/64 09/20/24 15:46 Pulse Ox 98 09/20/24 15:46 Oxygen Delivery Method Room Air 09/20/24 15:46 Tobacco/Smoking Status: Tobacco use Status Tobacco use date assessed 11/17/23 09/20/24 15:31 Patient Tobacco Use Status Never used Tobacco 09/20/24 15:31 e-Cigarette/Vaping Use Never Used 09/20/24 15:31 Thrive Assessment: Date of Thrive Assessment Date Thrive assessed 08/13/24 09/20/24 15:31 Currently or been in a relationship where the following occur: I choose not to answer Results AMB Urinalysis Dipstick UR Leukocytes Negative Last Edit by Leesa Perez CARLYN on 09/20/24 16:53 UR Nitrite Negative Last Edit by Leesa Perez, SHIPPING SPECIALIST on 09/20/24 16:53 UR Urobilinogen Normal Last Edit by Leesa Perez, SHIPPING SPECIALIST on 09/20/24 16:53 UR Protein Trace Last Edit by Leesa Perez, SHIPPING SPECIALIST on 09/20/24 16:53 UR Ph 6.0 Last Edit by Leesa Perez, SHIPPING SPECIALIST on 09/20/24 16:53 UR Blood Negative Last Edit by Leesa Perez, SHIPPING SPECIALIST on 09/20/24 16:53 UR Specific [place] 1.025 Last Edit by Leesa Perez, SHIPPING SPECIALIST on 09/20/24 16: 53 UR Ketone Negative Last Edit by Leesa Perez, SHIPPING SPECIALIST on 09/20/24 16:53 UR Bilirubin Small Last Edit by Leesa Perez, SHIPPING SPECIALIST on 09/20/24 16:53 UR Glucose Negative Last Edit by Leesa Perez, SHIPPING SPECIALIST on 09/20/24 16:53 Results Reviewed Results Reviewed: Laboratory Last Values Urine pH (Clinic) 6.0 09/20/24 16:49 Specific [place] (Clinic) 1.025 09/20/24 16:49 Ur Protein (Clinic) Trace 09/20/24 16:49 Ur Ketones (Clinic) Negative 09/20/24 16:49 Urine Blood (Clinic) Negative 09/20/24 16:49 Urine Nitrite Negative 09/20/24 16:49 Urine Bilirubin (Clinic) Small 09/20/24 16:49 Urobilinogen (Clinic) Normal 09/20/24 16:49 Leukocyte Esterase (Clinic) Negative 09/20/24 16:49 Urine Glucose (Clinic) Negative 09/20/24 16:49 Coding Level of Care Code Est Pt Level 4 (44300) Diagnoses Generalized abdominal pain R10.84 Abdominal location: generalized Pelvic pain R10.2 Assessment & Plan Assessment & Plan (1) Abdominal pain: Code(s): R10.9 - Unspecified abdominal pain Category: Medical Qualifiers: Abdominal location: generalized Qualified Code(s): R10.84 - Generalized abdominal pain Plan: Generalized but worse in right lower quadrant pelvic and umbilical areas. CT ordered. Discussed insurance may require u/s (2) Pelvic pain: Code(s): R10.2 - Pelvic and perineal pain Category: Medical Plan: see above Orders: Orders 2 AMB Urinalysis Dipstick 09/20/24 R10.30 - Lower abdominal pain, unspecified CT abdomen pelvis w IV con 09/20/24 R10.9 - Unspecified abdominal pain, Z90.710 - Acquired absence of both cervix and uterus, Z90.49 - Acquired absence of other specified parts of digestive tract, R10.2 - Pelvic and perineal pain Medications: New mometasone 0.1% 1 appl topical DAILY PRN 45 grams 1RF rash
[2024-09-20 15:46] VITALS: BP 96/64; PULSE 64; O2SAT 98
== END 2024-09-20 15:57 | disposition home or self-care (01) ==
PROVIDERS: PCP Internal Medicine; Visit Provider Internal Medicine
DX: R10.84 Generalized abdominal pain (principal); R10.2 Pelvic and perineal pain

== ENCOUNTER 2025-03-08 13:28 | Outpatient (AMB) | payer OTHER, SELFPAY ==
--- NOTE | 2025-03-08 13:48 | A.OFFPC_ITS ---
Vital Signs 03/08/25 13:52 Height 5 ft 7 in Weight 147 lb BMI 23.0 BP 124/76 Blood Pressure Location Rt brachial Position Sitting Respiration 14 Pulse 92 Pulse Source Pulse Oximeter Pulse Oximetry (%) 98 Oxygen Delivery Method Room Air Intake Visit Reasons: Face allergie Intake Note: Allergic reaction on the face. Hasnt been taking folic acid and ferrous sulfate, want to know if should still be taking. Allergies No Known Allergies Allergy (Verified 03/08/25 13:48) Tobacco use date assessed: 11/17/23 Dental Screening Dental Screen Date: 03/08/25 Did you have a dental visit in the last 12 months?: Yes Did you have a dental problem in the last 6 months where you did not have access to dental care?: No Was dental information given to patient?: Patient has dentist HPI HPI Comments History of Present Illness Details 44-year-old female presents for hyperten bindu, anxiety, and depression presenting for facial rash Recurrent facial rash-bilateral pimple like lesions, underlying redness, worse over the cheeks. Has been intermittent for quite some time Hyperlipidemia-stable on statin therapy ROS see HPI PHYSICAL EXAM: GENERAL: Alert and oriented x 3. NAD EYES: EOMI. Anicteric. HENT: Moist mucous membranes. No scleral icterus. No cervical lymphadenopathy. LUNGS: Clear to auscultation bilaterally. CARDIOVASCULAR: Regular rate and rhythm. No murmur. No JVD. ABDOMEN: Soft, mild tenderness and weakness periumbilical EXTREMITIES: No edema. Non-tender. SKIN: scattered mild acne with underlying erythema of the cheeks NEUROLOGIC: No focal neurological deficits. CN II-XII grossly intact PSYCHIATRIC: Cooperative. Appropriate mood and affect [facility] Medical History (Updated 03/08/25 @ 14:12 by Cristina Wu MD) Pelvic pain Anal pain Osteoporosis High cholesterol No pertinent past medical history Surgical History (Updated 09/20/24 @ 15:50 by Cristina Wu MD) Hx of appendectomy H/O: hysterectomy Hx of colonoscopy History of esophagogastroduodenoscopy (EGD) Family History Mother High blood pressure High cholesterol Diabetes Cardiovascular disease Father Cardiovascular disease High blood pressure Diabetes High cholesterol Family/Other High blood pressure Diabetes Social History (Updated 09/20/24 @ 15:30 by Leesa Perez CMAFreddy Housing: Apartment Alcohol intake: current Alcohol intake frequency: does not drink Patient Tobacco Use Status: Never used Tobacco e-Cigarette/Vaping Use: Never Used service: No Current occupational status: employed 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 1. Little interest or pleasure in doing things: not at all 2. Feeling down, depressed, or hopeless: not at all 3. Trouble falling or staying asleep, or sleeping too much: not at all 4. Feeling tired or having little energy: not at all 5. Poor appetite or overeating: not at all 6. Feeling bad about yourself - or that you are a failure or have let yourself or your family down: not at all 7. Trouble concentrating on things, such as reading the newspaper or watching television: not at all 8. Moving or speaking so slowly that other people could have noticed. Or the opposite - being so fidgety or restless that you have been moving around a lot more than usual: not at all 9. Thoughts that you would be better off or of hurting yourself in some way: not at all Total score: 0 Depression Screening Interpretation: Negative Depression Screening Done: Yes 78535 - PHQ-9 Billing: Yes Source: Developed by Drs. Zion Laurent, Mickie Kiran, Hamlet Gonzalez and colleagues, with an educational jose from [email or web address]. Thrive Questionnaire Date Thrive assessed: 03/08/25 I am a: Patient What is your living situation today?: I have a steady place to live Within the past 12 months, did the food you bought not last and you didn't have the money to get more?: Never true Within the past 12 months, did you worry whether your food would run out before you got money to buy more?: Never true Do you have trouble paying for medicines?: No Do you have trouble getting transportation to medical appointments?: No Do you have trouble paying your heating and electricity bill?: No Do you have trouble taking care of your child, family member or friend?: No Do you have trouble with day-to-day activities such as bathing, preparing meals, shopping, managing finances, etc.?: No Are you currently unemployed and looking for a job?: No Are you interested in more education?: No Please select the resources that you would like help with: None Currently or been in a relationship where the following occur: No concerns reported THRIVE Score: 0 AUDIT C Alcohol Use Questionnaire (AUDIT-C) 1. How often do you have a drink containing alcohol?: Never 3. How often do you have six or more drinks on one occasion?: Never Total Score: 0 KOSTAS-7 AMB Questionnaire KOSTAS-7 Date KOSTAS - 7 assessed: 03/08/25 Feeling nervous, anxious, or on edge: 0 = Not at all Not being able to stop or control worryin = Not at all Worrying too much about different things: 0 = Not at all Trouble relaxin = Not at all Being so restless that it is hard to sit still: 0 = Not at all Becoming easily annoyed or irritable: 0 = Not at all Feeling afraid as if something awful might happen: 0 = Not at all Total KOSTAS-7 score (0-4 normal; 5-9 mild; 10-14 moderate; 15-21 severe): 0 Source: Developed by Drs. Zion Laurent, Mickie Kiran, Hamlet Gonzalez and colleagues, with an educational jose from [email or web address]. KOSTAS-7 Assessment Billing KOSTAS-7 Assessment Tool: KOSTAS-7 Assessment 24173 Physical exam (Primary Care) Vital Signs: Last Vital Signs Pulse 92 03/08/25 13:52 Resp 14 03/08/25 13:52 BP 124/76 03/08/25 13:52 Pulse Ox 98 03/08/25 13:52 Oxygen Delivery Method Room Air 03/08/25 13:52 BMI result Body Mass Index 23.0 Tobacco/Smoking Status: Tobacco use Status Tobacco use date assessed 11/17/23 03/08/25 13:55 Patient Tobacco Use Status Never used Tobacco 03/08/25 13:55 e-Cigarette/Vaping Use Never Used 03/08/25 13:55 PHQ-9: PHQ-9 Score PHQ-9: Total score 0 03/08/25 13:55 Depression Screening Interpretation: Negative Thrive Assessment: Date of Thrive Assessment Date Thrive assessed 03/08/25 03/08/25 13:55 Currently or been in a relationship where the following occur: No concerns reported Coding Level of Care Code Est Pt Level 4 (89304) Diagnoses Facial rash R21 Osteoporosis, unspecified osteoporosis type, unspecified pathological fracture presence M81.0 Osteoporosis type: unspecified Presence of current pathological fracture: unspecified Additional Codes KOSTAS-7 Assessment Billing - KOSTAS-7 Assessment Tool: KOSTAS-7 Assessment 79712 ([id number]) PHQ-9 - 22256 - PHQ-9 Billing: Yes ([id number]) Assessment & Plan Assessment & Plan (1) Facial rash: Code(s): R21 - Rash and other nonspecific skin eruption Category: Medical (2) Osteoporosis: Code(s): M81.0 - Age-related osteoporosis without current pathological fracture Category: Medical Qualifiers: Osteoporosis type: unspecified Presence of current pathological fracture: unspecified Qualified Code(s): M81.0 - Age-related osteoporosis without current pathological fracture Plan Facial rash Possible allergic component Most consistent with rosacea-metronidazole sent She can continue sparse use of steroid cream if helpful Referrals to allergy and dermatology Orders: Orders Complete Blood Count Auto Diff Today I10 - Essential (primary) hypertension, R21 - Rash and other nonspecific skin eruption Hemoglobin A1c Today E78.00 - Pure hypercholesterolemia, unspecified, F32.A - Depression, unspecified, F41.9 - Anxiety disorder, unspecified, M81.0 - Age- related osteoporosis without current pathological fracture, R21 - Rash and other nonspecific skin eruption Lipid Panel Today E78.00 - Pure hypercholesterolemia, unspecified, F32.A - Depression, unspecified, F41.9 - Anxiety disorder, unspecified, M81.0 - Age- related osteoporosis without current pathological fracture, R21 - Rash and other nonspecific skin eruption Vitamin B12 and Folate Today I10 - Essential (primary) hypertension, R21 - Rash and other nonspecific skin eruption IRON PROFILE Today I10 - Essential (primary) hypertension, R21 - Rash and other nonspecific skin eruption MILENA Reflex Titer and Pattern Today E78.00 - Pure hypercholesterolemia, unspecified, F32.A - Depression, unspecified, F41.9 - Anxiety disorder, unspecified, M81.0 - Age-related osteoporosis without current pathological fracture, R21 - Rash and other nonspecific skin eruption Comprehensive Met. Panel Today E78.00 - Pure hypercholesterolemia, unspecified, F32.A - Depression, unspecified, F41.9 - Anxiety disorder, unspecified, M81.0 - Age-related osteoporosis without current pathological fracture, R21 - Rash and other nonspecific skin eruption Vitamin D 25-OH (D2 and D3) Today E78.00 - Pure hypercholesterolemia, unspecified, F32.A - Depression, unspecified, F41.9 - Anxiety disorder, unspecified, M81.0 - Age-related osteoporosis without current pathological fracture, R21 - Rash and other nonspecific skin eruption Referrals Dermatology Referral R21 - Rash and other nonspecific skin eruption Allergy & Immunology Referral R21 - Rash and other nonspecific skin eruption Medications: New metronidazole 0.75% 1 appl topical BEDTIME 45 grams 0RF mometasone 0.1% 1 appl topical DAILY PRN 15 grams 1RF skin irritation
[2025-03-08 13:52] VITALS: BP 124/76; PULSE 92; RESP 14; O2SAT 98; BMI 23.0
== END 2025-03-08 14:04 | disposition home or self-care (01) ==
LOC: HO.HMCFM 13:29
PROVIDERS: PCP Internal Medicine; Visit Provider Internal Medicine
DX: R21 Rash and other nonspecific skin eruption (principal); M81.0 Age-related osteoporosis without current pathological fracture

== ENCOUNTER → 2025-03-08 13:28 | Outpatient (BNVA) | payer OTHER, SELFPAY | PROVIDERS: PCP Internal Medicine; Visit Provider Internal Medicine | DX: R21 Rash and other nonspecific skin eruption (principal); M81.0 Age-related osteoporosis without current pathological fracture; I10 Essential (primary) hypertension; E78.5 Hyperlipidemia, unspecified; Z79.899 Other long term (current) drug therapy | CPT/HCPCS: 96127; 99212 ==

== ENCOUNTER 2025-05-14 08:40 | Outpatient (REF) | payer OTHER, SELFPAY ==
--- OUTSIDE RECORDS SUMMARY | 2025-05-14 08:42 | XMS_ITS | Patient Health Record ---
Author Organization [facility] Address [address] [address] Care Team Providers Care Industrial Yard Brake Coupler Name Role Phone Dante Gonzalez MD, Mark Anthony Yap Reason For Referral No Information Medications Medication SIG (Take, Route, Frequency, Duration) Notes Start Date End Date Status dexAMETHasone 4 MG Oral 0 Source DrugNa me : dexamethasone; Prescribed by : GIULIANO NI : TK 1 T PO BID Active hydrocortisone-pramoxi ne 0 Source DrugName : hydrocortisone-pra moxine; Prescribed by : CAMELIA SUBRAMANIANG : VAZQUEZ 1 APPLICATION RECTALLY AA TID PRN Active Simvastatin 0 Source DrugName : simvastatin; Prescribed by : GIULIANO MONTERROSOIG : Active Gemfibrozil 600 MG Oral 0 Source DrugNa me : gemfibrozil; Prescribed by : GIULIANO NI : TK 1 T PO ONCE D FOR 90 DAYS Active dicyclomine 0 Source DrugName : dicyclomine; Prescribed by : GIULIANO PADILLARONSIG : Active Lisinopril 5 MG Oral 0 Source DrugName : lisinopril; Prescribed by : GIULIANO MONTERROSOIG : Active cyclobenzaprine 0 Source DrugName : cyclobenzaprine; Prescribed by : ELEAZAR LÓPEZ : TK 1 T PO ONCE A DAY PRN Active Diclofenac Potassium 50 MG Oral 0 Source DrugName : diclofenac potassium; Prescribed by : ELEAZAR MAURO HEALSIG : TK 1 T PO ONCE A DAY FOR 90 DAYS Active Problems Problem Type SNOMED Code ICD Code Onset Dates Problem Status W/U Status Risk Notes Problem Rectal bleeding (59234666) Rectal bleeding (K62.5) 9 Active confirmed DR921-Fgqltc Bleeding Problem Rectal pain (14495700) Rectal pain (K62.89) 9 Active confirmed UW211-Rabslt pain Problem Abdominal Pain RLQ (R10.31) 9 Active confirmed TG748-Fshjbv nal Pain RLQ Plan Of Treatment No Information Medical (General) History Surgical History Surgery Date(Month/Year) Appendectomy
[2025-05-14 08:52] LABS: MANUAL DIFF FLAG NO
[2025-05-14 09:08] LABS: Hematocrit 35.1 % (37.0-47.0); Hemoglobin 11.7 g/dl (12.0-16.0); Imm Gran Abs Auto 0.02 X10*3/uL (0.00-0.03); Imm Gran Pct Auto 0.4 % (0.0-0.4); Lymphocytes Absolute Auto 1.9 X10*3/uL (1.2-4.9); Mean Corpuscular HGB Conc 33.3 g/dl (31.0-35.0); Mean Corpuscular Hemoglobin 30.0 pg (27.0-33.0); Mean Corpuscular Volume 90.0 fL (80.0-98.0); NRBC Abs Auto 0.000 X10*3/uL (0.0-0.012); NRBC Pct Auto 0.0 /100WBC (0.0-0.2); Platelet Count 227 X10*3/uL (160-400); Red Blood Count 3.90 X10*6/uL (4.20-5.50); White Blood Count 5.7 X10*3/uL (4.8-10.8)
[2025-05-14 09:17] LABS: Hemoglobin A1C 114.6077 umol/L; Total Hemoglobin (HGBA1C) 3080.2755 umol/L
[2025-05-14 09:48] LABS: Alanine Aminotransferase 45 U/L (0-31); Albumin Level 4.3 g/dL (3.5-5.0); Alkaline Phosphatase 45 U/L (39-117); Anion Gap 11 (12-20); Aspartate Amino Transferase 31 U/L (5-31); Blood Urea Nitrogen 17 mg/dL (9-16); Calcium 8.7 mg/dL (8.4-10.2); Carbon Dioxide 23 mmol/L (22-29); Chloride 111 mmol/L (96-108); Cholesterol 217 mg/dL (<200); Estimated Glomerular Filt Rate > 60; HDL Cholesterol 54 mg/dL (>40); Iron 85 mcg/dL (30-160); Percent Iron Saturation 35 % (15-50); Potassium 4.0 mmol/L (3.3-5.1); Sodium 141 mmol/L (135-145); Total Iron Binding Capacity 245 mcg/dL (228-428); Total Protein 7.2 g/dL (6.5-8.0); Triglycerides 81 mg/dL (<150); Unsaturated Iron Binding 160 ug/dL
[2025-05-14 10:23] LABS: Folate 9.5 ng/mL (> or = 4.0); Vitamin B12 296 pg/mL (200-900)
[2025-05-18 09:28] LABS: Anti Nuclear Antibody Screen NEGATIVE (NEGATIVE)
[2025-05-22 15:58] LABS: Vitamin D 25-OH, D2 <4 ng/mL; Vitamin D 25-OH, D3 17 ng/mL; Vitamin D 25-OH, Total 17 ng/mL (30-100)
== END 2025-05-14 08:41 | disposition home or self-care (01) ==
LOC: HO.LAB 08:40
PROVIDERS: PCP Internal Medicine; Visit Provider Internal Medicine
DX: M81.0 Age-related osteoporosis without current pathological fracture (principal); I10 Essential (primary) hypertension; R21 Rash and other nonspecific skin eruption; E78.00 Pure hypercholesterolemia, unspecified; F41.9 Anxiety disorder, unspecified; F32.A Depression, unspecified
CPT/HCPCS: 36415; 80053; 80061; 82306; 82607; 82746; 83036; 83540; 85025; 86038

== ENCOUNTER 2025-05-31 14:32 | Outpatient (AMB) | payer OTHER, SELFPAY ==
--- NOTE | 2025-05-31 14:52 | MHC.PC.OV ---
Vital Signs 05/31/25 14:54 Height 5 ft 7 in Weight 148 lb 2 oz BMI 23.2 BP 132/84 Blood Pressure Location Lt brachial Position Sitting Respiration 12 Pulse 73 Pulse Source Pulse Oximeter Temp 98.3 F Temp Source Oral Pulse Oximetry (%) 100 Oxygen Delivery Method Room Air Intake Visit Reasons: heart beat unregular Intake Note: Irregular heart beat since Friday. Occupational Therapy Co Director Required: No Allergies No Known Allergies Allergy (Verified 05/31/25 14:53) Tobacco use date assessed: 05/31/25 Dental Screening Dental Screen Date: 03/08/25 HPI HPI Comments History of Present Illness Details 45-year-old female presents for hypertension, anxiety, and depression presenting for chest pain Patient reports that in the past few weeks she has had episodes of chest pressure, elevated heart rate with associated shortness of breath. Worse with exertion and at night. EKG in the office today with q waves septal leads. Patient mom had OH at 50 and father also had OH. Recurrent facial rash-dermatology visit is scheduled Hyperlipidemia-stable on statin therapy ROS see HPI PHYSICAL EXAM: GENERAL: Alert and oriented x 3. NAD EYES: EOMI. Anicteric. HENT: Moist mucous membranes. No scleral icterus. No cervical lymphadenopathy. LUNGS: Clear to auscultation bilaterally. CARDIOVASCULAR: Regular rate and rhythm. No murmur. No JVD. ABDOMEN: Soft, mild tenderness and weakness periumbilical EXTREMITIES: No edema. Non-tender. SKIN: scattered mild acne with underlying erythema of the cheeks NEUROLOGIC: No focal neurological deficits. CN II-XII grossly intact PSYCHIATRIC: Cooperative. Appropriate mood and affect [facility] Medical History (Updated 06/01/25 @ 11:01 by Cristina Wu MD) Pelvic pain Anal pain Osteoporosis High cholesterol No pertinent past medical history Surgical History (Updated 09/20/24 @ 15:50 by Cristina Wu MD) Hx of appendectomy H/O: hysterectomy Hx of colonoscopy History of esophagogastroduodenoscopy (EGD) Family History Mother High blood pressure High cholesterol Diabetes Cardiovascular disease Father Cardiovascular disease High blood pressure Diabetes High cholesterol Family/Other High blood pressure Diabetes Social History (Updated 09/20/24 @ 15:30 by Leesa Perez CMA) Housing: Apartment Alcohol intake: current Alcohol intake frequency: does not drink Patient Tobacco Use Status: Never used Tobacco e-Cigarette/Vaping Use: Never Used service: No Current occupational status: employed 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 Current occupational exposures/hazards: No Cognitive needs: No Hearing needs: Yes Vision needs: No Questionnaire Thrive Questionnaire Date Thrive assessed: 03/08/25 I am a: Patient What is your living situation today?: I have a steady place to live Within the past 12 months, did the food you bought not last and you didn't have the money to get more?: Never true Within the past 12 months, did you worry whether your food would run out before you got money to buy more?: Never true Do you have trouble paying for medicines?: No Do you have trouble getting transportation to medical appointments?: No Do you have trouble paying your heating and electricity bill?: No Do you have trouble taking care of your child, family member or friend?: No Do you have trouble with day-to-day activities such as bathing, preparing meals, shopping, managing finances, etc.?: No Are you currently unemployed and looking for a job?: No Are you interested in more education?: No Please select the resources that you would like help with: None Currently or been in a relationship where the following occur: No concerns reported THRIVE Score: 0 AUDIT C Alcohol Use Questionnaire (AUDIT-C) 1. How often do you have a drink containing alcohol?: Never 3. How often do you have six or more drinks on one occasion?: Never Total Score: 0 KOSTAS-7 AMB Questionnaire KOSTAS-7 Date KOSTAS - 7 assessed: 03/08/25 Source: Developed by Drs. Zion Laurent, Mickie Kiran, Hamlet Gonzalez and colleagues, with an educational jose from [employer]. Physical exam (Primary Care) Vital Signs: Last Vital Signs Temp 98.3 F 05/31/25 14:54 Pulse 73 05/31/25 14:54 Resp 12 05/31/25 14:54 BP 132/84 05/31/25 14:54 Pulse Ox 100 05/31/25 14:54 Oxygen Delivery Method Room Air 05/31/25 14:54 BMI result Body Mass Index 23.2 Tobacco/Smoking Status: Tobacco use Status Tobacco use date assessed 05/31/25 05/31/25 14:58 Patient Tobacco Use Status Never used Tobacco 05/31/25 14:58 e-Cigarette/Vaping Use Never Used 05/31/25 14:58 Thrive Assessment: Date of Thrive Assessment Date Thrive assessed 03/08/25 05/31/25 14:58 Currently or been in a relationship where the following occur: No concerns reported Coding Level of Care Code Est Pt Level 4 (81287) Diagnoses Chest pressure R07.89 Assessment & Plan Assessment & Plan (1) Chest pressure: Code(s): R07.89 - Other chest pain Category: Medical Plan CP, dyspnea intermittent Family history of heart disease, abnormal EKG-stress test ordered Orders: Orders CA stress test 05/31/25 R07.9 - Chest pain, unspecified, R94.31 - Abnormal electrocardiogram [ECG] [EKG] XR DEXA axial skeleton 05/31/25 M81.0 - Age-related osteoporosis without current pathological fracture
[2025-05-31 14:54] VITALS: BP 132/84; PULSE 73; RESP 12; TEMP 36.8; O2SAT 100; BMI 23.2
--- OUTSIDE RECORDS SUMMARY | 2025-05-31 15:10 | XMS_ITS | Patient Health Record ---
Author Organization [facility] Address [address] [place] [address] Care Team Providers Care Drafting Clerk Name Role Phone Chloe Dent Primary Care Provider Unavailab [place] Unavailable [phone] Allergies No Known Allergies Reason For Referral No Information Medications Medication SIG (Take, Route, Frequency, Duration) Notes Start Date End Date Status Simvastatin 20 MG 1 tablet in the even ing Orally Once a day; Duration: 30 day(s) Active Lisinopril 5 MG 1 tablet Orally Once a day; Duration: 30 day(s) Active Compression Stockings 20-30 mmHg Wear on legs Daily; Duration: 6 months 09/28/2020 Active Social History Tobacco Use: Social History Observation Description Date Details (start date - stop date) Never Smoker NA - NA Tobacco Use/Smoking Question Answer Notes Are you a nonsmoker Additional Findings: Tobacco Non-User Current no n-smoker Problems Problem Type SNOMED Code ICD Code Onset Dates Problem Status W/U Status Risk Notes Problem Pain co-occurrent and due to varicose veins of bilateral legs ([id number] 9100) Varicose veins of bilateral lower extremities with pain (I83.813) Active confirmed Plan Of Treatment Pending Test Test Name Order Date Venous Doppler 09/28/2020 sclerotherapy 04/02/2021 Insurance Providers Payer Name Payer Address Payer Phone Subscriber Number Group Number Insured Name Patient Relationship to Insured Coverage Start Date Coverage End Date [employer] HMO [address] [place] [address] [id number] Donna Price Self - patient is the insured Medical (General) History Medical History History ICD Code hypertension varicose veins Surgical History Surgery Date(Month/Year) appendectomy 2009 uterus sx 2020
--- OUTSIDE RECORDS SUMMARY | 2025-05-31 15:11 | XMS_ITS | Patient Health Record ---
Author Organization [facility] Address [address] [address] Care Team Providers Care Welding Machine Operator Gas Metal Arc Name Role Phone Dante Gonzalez MD, Mark [...] Source DrugName : simvastatin; Prescribed by : GIULAINO MONTERROSOIG : Active Gemfibrozil 600 MG Oral [...] W/U Status Risk Notes Problem Rectal bleeding (70107414) Rectal bleeding (K62.5) 9 Active confirmed SP043-Kbksyi Bleeding Problem Rectal pain (39980301) Rectal pain (K62.89) 9 Active confirmed TE143-Dakuuz pain Problem Right lower quadrant pain (137516818) Abdominal Pain RLQ (R10.31) 9 Active confirmed EF839-Ytuslr nal Pain RLQ Plan Of Treatment No Information Medical (General) History Surgical History Surgery Date(Month/Year) Appendectomy
== END 2025-05-31 15:22 | disposition home or self-care (01) ==
LOC: HO.HMCFM 14:32
PROVIDERS: PCP Internal Medicine; Visit Provider Internal Medicine
DX: R07.89 Other chest pain (principal)

== ENCOUNTER → 2025-05-31 14:32 | Outpatient (BNVA) | payer OTHER, SELFPAY | PROVIDERS: PCP Internal Medicine; Visit Provider Internal Medicine | DX: R07.89 Other chest pain (principal) | CPT/HCPCS: 99212 ==

== ENCOUNTER 2025-07-19 13:05 | Outpatient (REF) | payer OTHER, SELFPAY ==
--- NOTE | ~2025-07-19 | MM_ITS ---
EXAMINATION: BONE DENSITOMETRY CLINICAL INDICATION: Age-related osteoporosis. COMPARISON: This is the patient's baseline examination. TECHNIQUE: Using a Euroling dual-energy x-ray absorptiometry was performed of the lumbar spine and left hip. The images are of good technical quality. Summary results are attached. FINDINGS: AP SPINE L1-L4: BMD 1.256 g/cm2, Z-score 0.6, T-score 0.6, . LEFT FEMUR, NECK: BMD 0.49 g/cm2, Z-score -0.9, T-score -1.4, LEFT FEMUR, TOTAL: BMD 0.941 g/cm2, Z-score -0.3, T-score -0.5, IDENTIFIED RISK FACTORS: None listed. HISTORY OF FRACTURE: None listed. MEDICATIONS: None listed. MM/XR DEXA axial skeleton IMPRESSION: 1. DIAGNOSIS: Osteopenia based on the lowest T-score value of -1.4 in the left femoral neck applying World Health Organization criteria. 2. 10-YEAR FRACTURE RISK PREDICTION, FRAX: 1.4% 3. Treatment Recommendations: NOF guidelines recommend consideration for treatment in postmenopausal women and men age 50 and older presenting with the following: -A hip or vertebral (clinical or morphometric) fracture. -T-score less than or equal to -2.5 at the femoral neck or spine after appropriate evaluation to exclude secondary causes. -Low bone mass at the hip or spine and a 10-year fracture probability by FRAX of greater than or equal to 3% for hip fracture or greater than or equal to 20% for major osteoporotic fracture based on the [place] adapted WHO algorithm. FUTURE SCAN RECOMMENDATION: People with diagnosed cases of osteoporosis or at high risk for fracture should have regular bone mineral density tests. For patients eligible for Medicare, routine testing is allowed once every 2 years. The testing frequency can be increased to one year for patients who have rapidly progressing disease, those who are receiving or discontinuing medical therapy to restore bone mass, or have additional risk factors. Electronically signed by: Dominick Zuniga MD 07/19/2025 02:53 PM EDT
--- OUTSIDE RECORDS SUMMARY | 2025-07-19 16:01 | XMS_ITS | Patient Health Record ---
Author Organization [facility] Address [address] [place] [address] Care Team Providers Care Machinist Class B Name Role Phone Chloe Dent Primary Care Provider Unavailab [place] Unavailable [phone] Allergies No Known Allergies Reason For Referral [...] due to varicose veins of bilateral legs ([id number] 9100) Varicose veins of bilateral lower extremities with pain (I83.813) Active confirmed Plan Of Treatment Pending Test Test Name Order Date Venous Doppler 09/28/2020 sclerotherapy 04/02/2021 Insurance Providers Payer Name Payer Address Payer Phone Subscriber Number Group Number Insured Name Patient Relationship to Insured Coverage Start Date Coverage End Date [employer] HMO [address] [place] [address] [phone] [id number] Donna Price Self - patient is the insured Medical (General) History Medical History History ICD Code hypertension varicose veins Surgical History Surgery Date(Month/Year) appendectomy 2009 uterus sx 2020
--- OUTSIDE RECORDS SUMMARY | 2025-07-19 16:02 | XMS_ITS | Patient Health Record ---
Author Organization [facility] Address [address] [address] Care Team Providers Care Blue Leather Sorter Name Role Phone Dante Gonzalez MD, Mark Anthony Yap [phone] Reason For Referral No Information Medications Medication SIG (Take, Route, Frequency, Duration) Notes Start Date End Date Status dexAMETHasone 4 MG Tablet Oral 0 Source DrugName : dexamethasone; Prescribed by : GIULIANO NI : TK 1 T PO BID Active hydrocortisone-pramoxi ne 0 Source DrugName : hydrocortisone-pra moxine; Prescribed by : CAMELIA HENRIQUEZ : VAZQUEZ 1 APPLICATION RECTALLY AA TID PRN Active Simvastatin 0 Source DrugName : simvastatin; Prescribed by : GIULIANO MONTERROSOIG : Active Gemfibrozil 600 MG Tablet Oral 0 Source DrugName : gemfibrozil; Prescribed by : GIULIANO NI : TK 1 T PO ONCE D FOR 90 DAYS Active dicyclomine 0 Source DrugName : dicyclomine; Prescribed by : GIULIANO PADILLARONSIG : Active Lisinopril 5 MG Tablet Oral [address] ugName : lisinopril; Prescribed by : GIULIANO MONTERROSOIG : Active cyclobenzaprine 0 Source DrugName : cyclobenzaprine; Prescribed by : ELEAZAR LÓPEZ : TK 1 T PO ONCE A DAY PRN Active Diclofenac Potassium 50 MG Tablet Oral 0 Source DrugName : diclofenac potassium; Prescribed by : ELEAZAR MAURO HEALSIG : TK 1 T PO ONCE A DAY FOR 90 DAYS Active Social History Social History Additional Details Category Social Info Options Details Migrated Social History Migrated Social History Alcohol History : None , Caffeine History : Coffee , Exercise History : None , Number of Children : 0 , 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
== END 2025-07-19 13:06 | disposition home or self-care (01) ==
LOC: HO.MAMMO 13:05
PROVIDERS: PCP Internal Medicine; Visit Provider Internal Medicine
DX: M81.0 Age-related osteoporosis without current pathological fracture (principal)
CPT/HCPCS: 77080

== ENCOUNTER → 2025-07-19 13:30 | Outpatient (BNV) | payer OTHER, SELFPAY | PROVIDERS: PCP Internal Medicine; Visit Provider Radiology Diagnostic Radiology | DX: E28.39 Other primary ovarian failure (principal) | CPT/HCPCS: 77080 ==

== ENCOUNTER → 2025-07-20 09:18 | Outpatient (REF) | payer OTHER, SELFPAY ==
--- NOTE | 2025-07-20 09:21 | CA_ITS ---
Acquisition Time: 2025-07-20 09:29:58 Total Exercise Time: 00:06:59 Test Indications: CP,Dyspnea,Palpitations Medications: SEE EMAR Protocol: SABRINA Max HR: 162 BPM 91% of Pred: 177 BPM Max BP: 148/76 mmHG Max Work Load: 8.5 METS Exercise stress test with exercise 6 mins 59 secs of Sabrina Protocol, achieving 91% MPHR, without any reports of chest pain or SOB, without any arrythmias, with normotenisve response to exercise. Without any EKG changes meeting criteria for ischemia. In recovery, pt continued to feel well. Test reviewed with Dr. Arshad. Referred By: Cristina Wu Electronically Signed By: Alvaro Donato
--- OUTSIDE RECORDS SUMMARY | 2025-07-20 10:56 | XMS_ITS | Patient Health Record ---
Author Organization [facility] Address [address] [address] Care Team Providers Care Director Name Role Phone Dante Gonzalez MD, Mark [...] W/U Status Risk Notes Problem Rectal bleeding (63297862) Rectal bleeding (K62.5) 9 Active confirmed [id number]-Nxepkc Bleeding Problem Rectal pain (65607510) Rectal pain (K62.89) 9 Active confirmed AB998-Ywdmps pain Problem Right lower quadrant pain (859155155) Abdominal Pain RLQ (R10.31) 9 Active confirmed FE090-Jakarn nal Pain RLQ Plan Of Treatment No Information Medical (General) History Surgical History Surgery Date(Month/Year) Appendectomy
--- OUTSIDE RECORDS SUMMARY | 2025-07-20 10:56 | XMS_ITS | Patient Health Record ---
Author Organization [facility] Address [address] [place] [address] Care Team Providers Care Cardiac Cath Technician Name Role Phone Chloe Dent Primary Care Provider Unavailab [place] Unavailable [phone] Allergies No Known Allergies Reason For Referral [...] due to varicose veins of bilateral legs ([id number]) Varicose veins of bilateral lower extremities with pain (I83.813) Active confirmed Plan Of Treatment Pending Test Test Name Order Date Venous Doppler 09/28/2020 sclerotherapy 04/02/2021 Insurance Providers Payer Name Payer Address Payer Phone Subscriber Number Group Number Insured Name Patient Relationship to Insured Coverage Start Date Coverage End Date [employer] HMO [address] [place] [address] [phone] [id number] Donna Price Self - patient is the insured Medical (General) History Medical History History ICD Code hypertension varicose veins Surgical History Surgery Date(Month/Year) appendectomy 2009 uterus sx 2020
== END ==
LOC: HO.CARD 09:18
PROVIDERS: PCP Internal Medicine; Visit Provider Internal Medicine
DX: R07.9 Chest pain, unspecified (principal); R94.31 Abnormal electrocardiogram [ECG] [EKG]; R00.2 Palpitations; R06.00 Dyspnea, unspecified
CPT/HCPCS: 93017

== ENCOUNTER → 2025-07-20 09:21 | Outpatient (BNV) | payer OTHER, SELFPAY | PROVIDERS: PCP Internal Medicine | DX: R07.9 Chest pain, unspecified (principal); R06.00 Dyspnea, unspecified | CPT/HCPCS: 93016; 93018 ==

== ENCOUNTER 2025-08-05 15:16 | Outpatient (AMB) | payer OTHER, SELFPAY ==
--- NOTE | 2025-08-05 15:18 | MHC.PC.OV ---
Vital Signs 08/05/25 15:19 Height 5 ft 7 in Weight 148 lb 2 oz BMI 23.2 BP 118/80 Blood Pressure Location Rt brachial Position Sitting Respiration 12 Pulse 87 Pulse Source Pulse Oximeter Temp 98.6 F Temp Source Oral Pulse Oximetry (%) 99 Oxygen Delivery Method Room Air Intake Visit Reasons: 2 month follow up Intake Note: Two month follow up Bank Worker Required: No Allergies No Known Allergies Allergy (Verified 08/05/25 15:21) Tobacco use date assessed: 05/31/25 Dental Screening Dental Screen Date: 03/08/25 HPI HPI Comments History of Present Illness Details 45-year-old female presents for hypertension, anxiety, and depression presenting for chest pain CV: Patient had interval normal stress test. Patient reports that in the past few weeks she has had episodes of chest pressure, elevated heart rate with associated shortness of breath. Worse with exertion and at night. EKG in the office today with q waves septal leads. Patient mom had AZ at 50 and father also had AZ. Recurrent facial rash-dermatology referral was placed but patient says she could not get in until late Spring Hyperlipidemia-stable on statin therapy Reports chronic bad breath. Tells me she saw GI in the past for this and was placed on antibiotics. It was not helpful. She has tried otc medications. Reports frequent throat discomfort, tonsil stones intermittently ROS see HPI PHYSICAL EXAM: GENERAL: Alert and oriented x 3. NAD EYES: EOMI. Anicteric. HENT: Moist mucous membranes. No scleral icterus. No cervical lymphadenopathy. LUNGS: Clear to auscultation bilaterally. CARDIOVASCULAR: Regular rate and rhythm. No murmur. No JVD. ABDOMEN: Soft, mild tenderness and weakness periumbilical EXTREMITIES: No edema. Non-tender. SKIN: scattered mild acne with underlying erythema of the cheeks NEUROLOGIC: No focal neurological deficits. CN II-XII grossly intact PSYCHIATRIC: Cooperative. Appropriate mood and affect [facility] Medical History Pelvic pain Anal pain Osteoporosis High cholesterol No pertinent past medical history Surgical History Hx of appendectomy H/O: hysterectomy Hx of colonoscopy History of esophagogastroduodenoscopy (EGD) Family History Mother High blood pressure High cholesterol Diabetes Cardiovascular disease Father Cardiovascular disease High blood pressure Diabetes High cholesterol Family/Other High blood pressure Diabetes Social History Housing: Apartment Alcohol intake: former Patient Tobacco Use Status: Never used Tobacco e-Cigarette/Vaping Use: Never Used service: No Current occupational status: employed 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 Current occupational exposures/hazards: No Cognitive needs: No Hearing needs: Yes Vision needs: No Questionnaire Thrive Questionnaire Date Thrive assessed: 03/08/25 I am a: Patient What is your living situation today?: I have a steady place to live Within the past 12 months, did the food you bought not last and you didn't have the money to get more?: Never true Within the past 12 months, did you worry whether your food would run out before you got money to buy more?: Never true Do you have trouble paying for medicines?: No Do you have trouble getting transportation to medical appointments?: No Do you have trouble paying your heating and electricity bill?: No Do you have trouble taking care of your child, family member or friend?: No Do you have trouble with day-to-day activities such as bathing, preparing meals, shopping, managing finances, etc.?: No Are you currently unemployed and looking for a job?: No Are you interested in more education?: No Please select the resources that you would like help with: None Currently or been in a relationship where the following occur: No concerns reported THRIVE Score: 0 AUDIT C Alcohol Use Questionnaire (AUDIT-C) 1. How often do you have a drink containing alcohol?: Never 3. How often do you have six or more drinks on one occasion?: Never Total Score: 0 KOSTAS-7 AMB Questionnaire KOSTAS-7 Date KOSTAS - 7 assessed: 03/08/25 Source: Developed by Drs. Zion Laurent, Mickie Kiran, Hamlet Gonzalez and colleagues, with an educational jose from [employer]. Physical exam (Primary Care) Vital Signs: Last Vital Signs Temp 98.6 F 08/05/25 15:19 Pulse 87 08/05/25 15:19 Resp 12 08/05/25 15:19 BP 118/80 08/05/25 15:19 Pulse Ox 99 08/05/25 15:19 Oxygen Delivery Method Room Air 08/05/25 15:19 BMI result Body Mass Index 23.2 Tobacco/Smoking Status: Tobacco use Status Tobacco use date assessed 05/31/25 08/05/25 15:18 Patient Tobacco Use Status Never used Tobacco 08/05/25 15:25 e-Cigarette/Vaping Use Never Used 08/05/25 15:25 Thrive Assessment: Date of Thrive Assessment Date Thrive assessed 03/08/25 08/05/25 15:18 Currently or been in a relationship where the following occur: No concerns reported Coding Level of Care Code Est Pt Level 4 (95987) Diagnoses Primary hypertension I10 Hypertension type: primary hypertension Anxiety and depression F41.9; F32.A Facial rash R21 Halitosis R19.6 Assessment & Plan Assessment & Plan (1) HTN (hypertension): Code(s): I10 - Essential (primary) hypertension Category: Medical Qualifiers: Hypertension type: primary hypertension Qualified Code(s): I10 - Essential (primary) hypertension (2) Anxiety and depression: Code(s): F41.9 - Anxiety disorder, unspecified; F32.A - Depression, unspecified Category: Medical (3) Facial rash: Code(s): R21 - Rash and other nonspecific skin eruption Category: Medical (4) Halitosis: Code(s): R19.6 - Halitosis Category: Medical Plan HTN-diet controlled. Recent normal stress test Halitosis-requests ENT referral which is placed. Chlohexadine sent HLD-continue statin therapy Orders: Referrals Ear/Nose/Throat Referral J35.8 - Other chronic diseases of tonsils and adenoids, R19.6 - Halitosis Dermatology Referral L70.9 - Acne, unspecified, R21 - Rash and other nonspecific skin eruption Medications: New chlorhexidine gluconate 0.12% 15 mL buccal BID 473 mL 1RF
[2025-08-05 15:19] VITALS: BP 118/80; PULSE 87; RESP 12; TEMP 37; O2SAT 99; BMI 23.2
== END 2025-08-05 15:45 | disposition home or self-care (01) ==
LOC: HO.HMCFM 15:17
PROVIDERS: PCP Internal Medicine; Visit Provider Internal Medicine
DX: I10 Essential (primary) hypertension (principal); F41.9 Anxiety disorder, unspecified; F32.A Depression, unspecified; R21 Rash and other nonspecific skin eruption; R19.6 Halitosis

== ENCOUNTER → 2025-08-05 15:16 | Outpatient (BNVA) | payer OTHER, SELFPAY | PROVIDERS: PCP Internal Medicine; Visit Provider Internal Medicine | DX: I10 Essential (primary) hypertension (principal); F41.9 Anxiety disorder, unspecified; F32.A Depression, unspecified; R21 Rash and other nonspecific skin eruption; R19.6 Halitosis; Z79.899 Other long term (current) drug therapy | CPT/HCPCS: 99212 ==

== ENCOUNTER 2025-10-07 11:34 | Outpatient (AMB) | payer OTHER, SELFPAY ==
--- NOTE | 2025-10-07 11:45 | A.OFFPC_ITS ---
Vital Signs 10/07/25 11:46 Height 5 ft 7 in Weight 148 lb BMI 23.2 BP 124/84 Blood Pressure Location Lt brachial Position Sitting Respiration 14 Pulse 62 Pulse Source Pulse Oximeter Pulse Oximetry (%) 100 Oxygen Delivery Method Room Air Intake Visit Reasons: follow up Intake Note: Follow up Bulldozer/Loader/Compactor/Scraper Required: No Allergies No Known Allergies Allergy (Verified 10/07/25 11:46) Tobacco use date assessed: 10/07/25 Dental Screening Dental Screen Date: 03/08/25 HPI HPI Comments History of Present Illness Details 45-year-old female presents for hyperten bindu, anxiety, and depression presenting for follow up Patient has frequent intermittent bright red blood blood due to hemorrhoids. She has surgery consultation next week CV: History of chest pain. Stable. Normal stress test. Patient reports that in the past few weeks she has had episodes of chest pressure, elevated heart rate with associated shortness of breath. Worse with exertion and at night. EKG in the office today with q waves septal leads. Patient mom had NV at 50 and father also had NV. Recurrent facial rash-dermatology referral was placed. Appt pending Hyperlipidemia-stable on statin therapy Reports chronic bad breath. Tells me she saw GI in the past for this and was pl aced on antibiotics. It was not helpful. She has tried otc medications. Continues to reports frequent throat discomfort, tonsil stones intermittently. She was referred to ENT. Needs to call them to rescheduled ROS see HPI PHYSICAL EXAM: GENERAL: Alert and oriented x 3. NAD EYES: EOMI. Anicteric. HENT: Moist mucous membranes. No scleral icterus. No cervical lymphadenopathy. LUNGS: Clear to auscultation bilaterally. CARDIOVASCULAR: Regular rate and rhythm. No murmur. No JVD. ABDOMEN: Soft, mild tenderness and weakness periumbilical EXTREMITIES: No edema. Non-tender. SKIN: scattered mild acne with underlying erythema of the cheeks NEUROLOGIC: No focal neurological deficits. CN II-XII grossly intact PSYCHIATRIC: Cooperative. Appropriate mood and affect [facility] Medical History Pelvic pain Anal pain Osteoporosis High cholesterol No pertinent past medical history Surgical History Hx of appendectomy H/O: hysterectomy Hx of colonoscopy History of esophagogastroduodenoscopy (EGD) Family History Mother High blood pressure High cholesterol Diabetes Cardiovascular disease Father Cardiovascular disease High blood pressure Diabetes High cholesterol Family/Other High blood pressure Diabetes Social History Housing: Apartment Alcohol intake: former Patient Tobacco Use Status: Never used Tobacco e-Cigarette/Vaping Use: Never Used service: No Current occupational status: employed 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 Current occupational exposures/hazards: No Cognitive needs: No Hearing needs: Yes Vision needs: No Questionnaire Thrive Questionnaire Date Thrive assessed: 03/08/25 I am a: Patient What is your living situation today?: I have a steady place to live Within the past 12 months, did the food you bought not last and you didn't have the money to get more?: Never true Within the past 12 months, did you worry whether your food would run out before you got money to buy more?: Never true Do you have trouble paying for medicines?: No Do you have trouble getting transportation to medical appointments?: No Do you have trouble paying your heating and electricity bill?: No Do you have trouble taking care of your child, family member or friend?: No Do you have trouble with day-to-day activities such as bathing, preparing meals, shopping, managing finances, etc.?: No Are you currently unemployed and looking for a job?: No Are you interested in more education?: No Please select the resources that you would like help with: None Currently or been in a relationship where the following occur: No concerns reported THRIVE Score: 0 AUDIT C Alcohol Use Questionnaire (AUDIT-C) 1. How often do you have a drink containing alcohol?: Never 3. How often do you have six or more drinks on one occasion?: Never Total Score: 0 KOSTAS-7 AMB Questionnaire KOSTAS-7 Date KOSTAS - 7 assessed: 03/08/25 Source: Developed by Drs. Zion Laurent, Mickie Kiran, Hamlet Gonzalez and colleagues, with an educational jose from [employer]. Physical exam (Primary Care) Vital Signs: Last Vital Signs Pulse 62 10/07/25 11:46 Resp 14 10/07/25 11:46 BP 124/84 10/07/25 11:46 Pulse Ox 100 10/07/25 11:46 Oxygen Delivery Method Room Air 10/07/25 11:46 BMI result Body Mass Index 23.2 Tobacco/Smoking Status: Tobacco use Status Tobacco use date assessed 10/07/25 10/07/25 11:47 Patient Tobacco Use Status Never used Tobacco 10/07/25 11:47 e-Cigarette/Vaping Use Never Used 10/07/25 11:47 Thrive Assessment: Date of Thrive Assessment Date Thrive assessed 03/08/25 10/07/25 11:47 Currently or been in a relationship where the following occur: No concerns reported Coding Level of Care Code Est Pt Level 3 (97150) Diagnoses Hemorrhoids, unspecified hemorrhoid type K64.9 Hemorrhoid type: unspecified Tonsil stone J35.8 Primary hypertension I10 Hypertension type: primary hypertension Assessment & Plan Assessment & Plan (1) Hemorrhoids: Code(s): K64.9 - Unspecified hemorrhoids Category: Medical Qualifiers: Hemorrhoid type: unspecified Qualified Code(s): K64.9 - Unspecified hemorrhoids (2) Tonsil stone: Code(s): J35.8 - Other chronic diseases of tonsils and adenoids Category: Medical (3) HTN (hypertension): Code(s): I10 - Essential (primary) hypertension Category: Medical Qualifiers: Hypertension type: primary hypertension Qualified Code(s): I10 - Essential (primary) hypertension Plan 45 year old for follow up bleeding hemorrhoids-upcoming surgery consultation. check labs tonsil stones, halitosis-she is calling ent for consultation Orders: Orders Complete Blood Count Auto Diff 10/07/25 D64.9 - Anemia, unspecified IRON PROFILE 10/07/25 D64.9 - Anemia, unspecified Medications: Refilled omega-3 acid ethyl esters 1 cap PO DAILY 90 caps 3RF
[2025-10-07 11:46] VITALS: BP 124/84; PULSE 62; RESP 14; O2SAT 100; BMI 23.2
== END 2025-10-07 12:02 | disposition home or self-care (01) ==
LOC: HO.HMCFM 11:35
PROVIDERS: PCP Internal Medicine; Visit Provider Internal Medicine
DX: K64.9 Unspecified hemorrhoids (principal); J35.8 Other chronic diseases of tonsils and adenoids; I10 Essential (primary) hypertension

== ENCOUNTER → 2025-10-07 11:34 | Outpatient (BNVA) | payer OTHER, SELFPAY | PROVIDERS: PCP Internal Medicine; Visit Provider Internal Medicine | DX: K64.9 Unspecified hemorrhoids (principal); J35.8 Other chronic diseases of tonsils and adenoids; I10 Essential (primary) hypertension | CPT/HCPCS: 99212 ==

== ENCOUNTER 2025-10-18 08:38 | Outpatient (REF) | payer OTHER, SELFPAY ==
[2025-10-18 10:00] LABS: MANUAL DIFF FLAG NO
[2025-10-18 10:54] LABS: Hematocrit 37.4 % (37.0-47.0); Hemoglobin 12.5 g/dl (12.0-16.0); Imm Gran Abs Auto 0.02 X10*3/uL (0.00-0.03); Imm Gran Pct Auto 0.4 % (0.0-0.4); Lymphocytes Absolute Auto 1.7 X10*3/uL (1.2-4.9); Mean Corpuscular HGB Conc 33.4 g/dl (31.0-35.0); Mean Corpuscular Hemoglobin 31.6 pg (27.0-33.0); Mean Corpuscular Volume 94.4 fL (80.0-98.0); NRBC Abs Auto 0.000 X10*3/uL (0.0-0.012); NRBC Pct Auto 0.0 /100WBC (0.0-0.2); Platelet Count 250 X10*3/uL (160-400); Red Blood Count 3.96 X10*6/uL (4.20-5.50); White Blood Count 4.9 X10*3/uL (4.8-10.8)
[2025-10-18 11:52] LABS: Iron 92 mcg/dL (30-160); Percent Iron Saturation 36 % (15-50); Total Iron Binding Capacity 257 mcg/dL (228-428); Unsaturated Iron Binding 165 ug/dL
== END 2025-10-18 08:39 | disposition home or self-care (01) ==
LOC: HO.LAB 08:38
PROVIDERS: Absent Provider Internal Medicine; PCP Internal Medicine; Visit Provider Surgery
DX: K62.9 Disease of anus and rectum, unspecified (principal); D64.9 Anemia, unspecified
CPT/HCPCS: 36415; 83540; 85025

== ENCOUNTER 2025-10-18 08:38 | Outpatient (AMB) | payer OTHER, SELFPAY ==
--- OUTSIDE RECORDS SUMMARY | 2025-10-18 08:54 | XMS_ITS | Patient Health Record ---
Author Organization [facility] Address [address] [place] [address] Care Team Providers Care Engine Hostler Name Role Phone Chloe Dent Primary Care Provider Unavailab [place] Unavailable [phone] Allergies No Known Allergies Reason For Referral [...] due to varicose veins of bilateral legs ([id number] 9100) Varicose veins of bilateral lower extremities with pain (I83.813) Active confirmed Plan Of Treatment Pending Test Test Name Order Date Venous Doppler 09/28/2020 sclerotherapy 04/02/2021 Insurance Providers Payer Name Payer Address Payer Phone Subscriber Number Group Number Insured Name Patient Relationship to Insured Coverage Start Date Coverage End Date [facility] [employer] HMO [address] [place] [address] [phone] [id number] Donna Price Self - patient is the insured Medical (General) History Medical History History ICD Code hypertension varicose veins Surgical History Surgery Date(Month/Year) appendectomy 2009 uterus sx 2020
--- OUTSIDE RECORDS SUMMARY | 2025-10-18 08:54 | XMS_ITS | Patient Health Record ---
Author Organization [facility] Address [address] [address] Care Team Providers Care Manager Of Loss Prevention Operations Name Role Phone Dante Gonzalez MD, Mark Anthony Yap [phone] Reason For Referral No Information Medications Medication [...] : diclofenac potassium; Prescribed by : ELEAZAR MARUO HEALSIG : TK 1 T PO ONCE [...] W/U Status Risk Notes Problem Rectal bleeding (60835078) Rectal bleeding (K62.5) 9 Active confirmed OZ347-Rdwxax Bleeding Problem Rectal pain (07503671) Rectal pain (K62.89) 9 Active confirmed XO840-Zrzwkz pain Problem Right lower quadrant pain (867920593) Abdominal Pain RLQ (R10.31) 9 Active confirmed ED359-Uxrncr nal Pain RLQ Plan Of Treatment No Information Medical (General) History Surgical History Surgery Date(Month/Year) Appendectomy
--- NOTE | 2025-10-18 09:29 | MHC.OFFVIS ---
Vital Signs 10/18/25 09:37 Height 5 ft 7 in Weight 147 lb BMI 23.0 BP 149/88 H Blood Pressure Location Lt brachial Position Sitting Pulse 91 Intake Visit Reasons: hemorrhoids with anal fissure Intake Note: Patient is seen in office for follow up visit, following on hemorrhoids with anal fissure. 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 She says for the past month she has been having this severe anal pain especially with bowel movements. She says that she seems to be worsening. She also notices blood with bowel movements which can often times be heavy. She has severe pain with wiping as well after bowel movements. She also describes having sharp pain like a knife cutting her anus with passage of stools. Also noticed this a soft ?lump ?just outside her anus on the left side. She also says that this is the side that seemed to be tender and painful. I had seen her in June, for anal pain as well. At that time, I did not see any fissure and her pain had resolved. She did have internal and external hemorrhoids. She denies being constipated. She says she is healthy overall. [facility] Medical History (Updated 10/18/25 @ 09:48 by Floyd Doran MD) Anal lesion Pelvic pain Anal pain Osteoporosis High cholesterol No pertinent past medical history Surgical History Hx of appendectomy H/O: hysterectomy Hx of colonoscopy History of esophagogastroduodenoscopy (EGD) Family History Mother High blood pressure High cholesterol Diabetes Cardiovascular disease Father Cardiovascular disease High blood pressure Diabetes High cholesterol Family/Other High blood pressure Diabetes Social History Housing: Apartment Alcohol intake: former Patient Tobacco Use Status: Never used Tobacco e-Cigarette/Vaping Use: Never Used service: No Current occupational status: employed 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 Current occupational exposures/hazards: No Cognitive needs: No Hearing needs: Yes Vision needs: No Review of Systems Const Denies chills and Denies fever(s) Card Denies chest pain, Denies dyspnea and Denies dyspnea on exertion Resp Denies cough, Denies dyspnea and Denies dyspnea on exertion GI Reports hematochezia and Denies change in bowel habits Denies hematuria Musc Denies back pain and Denies limited range of motion Neuro Denies focal weakness and Denies convulsions Psych Denies depression and Denies mood swings Physical Exam Vital Signs: Last Vital Signs Pulse 91 10/18/25 09:37 BP 149/88 H 10/18/25 09:37 BMI result Body Mass Index 23.0 Const General: comfortable and no acute distress Orientation/consciousness: patient oriented x3 Neck Neck: Yes no lymphadenopathy Resp Auscultation: clear to auscultation bilaterally Cardio Rhythm: regular rhythm GI Other: Rectal exam shows a soft fleshy elevated lesion on the left anal verge along with ulcer/fissure. She is very tender to touch show I was not able to do any anoscopy or digital exam Palpation (GI): Soft to palpation, nontender and no guarding Neuro General: patient oriented x3 Assessment & Plan Assessment & Plan (1) Anal lesion: Code(s): K62.9 - Disease of anus and rectum, unspecified Category: Medical Plan: She has this significant tenderness and pain in the anal area and this has been worsening for the past month. She says she has been miserable. Examination shows this soft fleshy mass that may be an internal hemorrhoid but there is note of ulceration/fissure the anal verge proximal to this. This fissure is in atypical location as this is not in the midline. I explained to her that in view of her worsening symptoms, it may be best to proceed with a an exam under anesthesia and possible excision/biopsy of this lesion. I reviewed with her the technique of this procedure. I explained the risks including but not limited to bleeding, infections, poor healing, persistent of symptoms, as well as the benefits and alternatives. She says she wants to proceed. Coding Level of Care Code Est Pt Level 3 (28980) Diagnoses Anal lesion K62.9
[2025-10-18 09:37] VITALS: BP 149/88; PULSE 91; BMI 23.0
== END 2025-10-18 09:43 | disposition home or self-care (01) ==
LOC: HO.HGS 08:39
PROVIDERS: PCP Internal Medicine; Visit Provider Surgery
DX: K62.9 Disease of anus and rectum, unspecified (principal)
CPT/HCPCS: 99213